=== PATIENT | female | born 1955 | race Caucasian/White ===

== ENCOUNTER 2019-05-24 17:58 | Emergency (ER) | payer OTHER ==
[2019-05-24 18:14] VITALS: BP 128/95
[2019-05-24] MEDS ORDERED: HYDROcodone/ACETAMIN 5-325 MG* 1 TAB PO ONE (18:21)
--- NOTE | 2019-05-24 18:31 | UC ---
Hip/Pelvis Pain - HPI Summary HPI Summary: 64-year-old woman comes in with a chief complaint of right hip and pelvis pain in the right lower leg pain after suffering a fall at home this morning at approximately 4 AM when she accidentally tripped over a piece of equipment. Been having pain all day. The worst pain is in the right hip. Pain with any kind of movement or weightbearing. She did try nonsteroidal anti-inflammatory and Relafen with minimal relief. Does feel some tingling down the right leg and some numbness. - History Of Current Complaint Chief Complaint: UCLowerExtremity Stated Complaint: HIP INJURY Time Seen by Provider: 05/24/19 18:10 Pain Intensity: 8 - Allergies/Home Medications Allergies/Adverse Reactions: Allergies Allergy/AdvReac Type Severity Reaction Status Date / Time No Known Allergies Allergy Verified 05/24/19 18:14 Home Medications: Home Medications Cholecalciferol CAP/TAB(NF) [Vitamin D3 CAP/TAB (NF)] 05/24/19 [History] Hydrochlorothiazide TAB* [Hydrodiuril TAB*] 05/24/19 [History] Lisinopril TAB* [Prinivil TAB*] 5 mg PO DAILY 05/24/19 [History Confirmed ] Nabumetone TAB* [Relafen TAB*] 1,000 mg PO PRN 05/24/19 [History] PMH/Surg Hx/FS Hx/Imm Hx Previously Healthy: Yes - osteoporosis - Surgical History Surgical History: Yes Surgery Procedure, Year, and Place: hemorrhoid surgery 03/2019 - Family History Known Family History: Positive: Unknown - Social History Alcohol Use: None Substance Use Type: None Smoking Status (MU): Never Smoked Tobacco Review of Systems All Other Systems Reviewed And Are Negative: Yes Constitutional: Positive: Negative Skin: Positive: Negative Eyes: Positive: Negative ENT: Positive: Negative Respiratory: Positive: Negative Cardiovascular: Positive: Negative Gastrointestinal: Positive: Negative Motor: Positive: Other - SEE HPI Neurovascular: Positive: Other - SEE HPI Musculoskeletal: Positive: Other: - SEE HPI Neurological/Mental Status: Positive: Other - SEE HPI Psychological: Positive: Negative Is Patient Immunocompromised?: No Physical Exam Triage Information Reviewed: Yes Appearance: Well-Appearing, Well-Nourished, Pain Distress - Mild at rest moderate with examination or movement. Vital Signs: Initial Vital Signs Temp 99.6 F 05/24/19 18:09 Pulse 116 05/24/19 18:09 Resp 20 05/24/19 18:09 BP 128/95 05/24/19 18:09 Pulse Ox 97 05/24/19 18:09 Vital Signs Reviewed: Yes Eye Exam: Normal Eyes: Positive: Conjunctiva Clear Neck: Positive: Supple Respiratory: Positive: No respiratory distress Musculoskeletal: Positive: Other: - Tender to palpation over the right greater trochanter right iliac crest and right ischial ramus. Also some tenderness to palpation the lateral right lower leg. Pain with any attempted range of motion of hip. Neurological: Positive: Alert Psychological: Positive: Age Appropriate Behavior Skin Exam: Normal Hip Injury Course/Dx - Course Course Of Treatment: I discussed the x-rays with the patient and her . I discussed the x- rays with the orthopedist on-call Dr. Drew. He recommends a CT scan of the hip and admission to the hospital for further care of right hip fracture. CT scan was done here in clinic and then patient went to the hospital by POV. - Differential Dx/Diagnosis Provider Diagnosis: Closed right hip fracture, Right leg pain Discharge ED - Sign-Out/Discharge Documenting (check all that apply): Patient Departure All imaging exams completed and their final reports reviewed: No - Discharge Plan Condition: Stable Disposition: HOME-RECOMMEND TO ED Patient Education Materials: Hip Fracture (ED) Referrals: Gonzalo Devries MD [Medical Doctor] - Additional Instructions: GO DIRECTLY TO THE EMERGENCY DEPARTMENT FOR FURTHER EVALUATION AND CARE OF YOUR RIGHT HIP FRACTURE. DR DEVRIES IS THE ORTHOPEDIST SEMICONDUCTOR ASSEMBLER WHO I DISCUSSED YOUR CASE WITH. - Billing Disposition and Condition Condition: STABLE Disposition: Home-Recommend to ED
--- NOTE | 2019-05-25 14:43 | UC ---
- Progress Note Progress Note: RADIOLOGY REPORTS REVIEWED. CONFIRMED IMPACTED RIGHT FEMORAL NECK FRACTURE. PATIENT WAS SENT TO THE ER. Course/Dx - Diagnoses Provider Diagnoses: Closed right hip fracture, Right leg pain Discharge ED - Sign-Out/Discharge Documenting (check all that apply): Post-Discharge Follow Up All imaging exams completed and their final reports reviewed: Yes - Discharge Plan Condition: Stable Disposition: HOME-RECOMMEND TO ED Patient Education Materials: Hip Fracture (ED) Referrals: Gonzalo Devries MD [Medical Doctor] - Additional Instructions: GO DIRECTLY TO THE EMERGENCY DEPARTMENT FOR FURTHER EVALUATION AND CARE OF YOUR RIGHT HIP FRACTURE. DR DEVRIES IS THE ORTHOPEDIST [employer] WHO I DISCUSSED YOUR CASE WITH. - Billing Disposition and Condition Condition: STABLE Disposition: Home-Recommend to ED
== END 2019-05-24 19:15 | disposition home health service (06) ==
LOC: UCEAST 17:58
DX: S72.001A Fracture of unspecified part of neck of right femur, initial encounter for closed fracture (principal); M81.0 Age-related osteoporosis without current pathological fracture; M79.604 Pain in right leg; W01.0XXA Fall on same level from slipping, tripping and stumbling without subsequent striking against object, initial encounter; Y92.9 Unspecified place or not applicable
CPT/HCPCS: 72192; 99202; G0463

== ENCOUNTER 2019-05-24 19:46 | Inpatient (IN) | payer OTHER ==
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
[2019-05-24 21:17] LABS: ABS Eosinophils 0.1 10^3/ul (0-0.6); ABS Lymphocytes 1.4 10^3/ul (1.0-4.8); ABS Monocytes 0.6 10^3/ul (0-0.8); ABS Neutrophils 6.4 10^3/ul (1.5-7.7); Eosinophil % 1.3 %; Hematocrit 37 % (35-47); Hemoglobin 12.6 g/dL (12.0-16.0); Lymphocyte % 16.6 %; Mean Corpuscular HGB Conc 34 g/dL (31-36); Mean Corpuscular Hemoglobin 30 pg (27-31); Mean Corpuscular Volume 89 fL (80-97); Mean Platelet Volume 7.5 fL (7.4-10.4); Platelet Count 263 10^3/uL (150-450); Red Blood Count 4.16 10^6 /uL (3.70-4.87); Red Cell Distribution Width 14 % (10-15); White Blood Count 8.6 10^3/uL (3.5-10.8)
[2019-05-24 21:29] LABS: Activated Partial Thrombo Time 34.5 seconds (26.0-38.0); INR 1.09 (0.82-1.09)
[2019-05-24 21:37] LABS: Albumin 4.1 g/dL (3.2-5.2); Albumin/Globulin Ratio 1.4 (1-3); BUN/Creatinine Ratio 24.7 (8-20); Calcium 9.4 mg/dL (8.6-10.3); EGFR African American 91.6 (>60); EGFR Non-African American 75.7 (>60); Globulin 2.9 g/dL (2-4); Potassium 4.1 mmol/L (3.5-5.0); Total Bilirubin 0.7 mg/dL (0.2-1.0)
[2019-05-24] MEDS ORDERED: Ondansetron INJ* 2 MG/ML VIAL IV PRN (22:49)
[2019-05-24] MEDS ORDERED: Morphine INJ* 2 MG/ML 1 ML SYRINGE (TWO MG - NEW SYRINGE VERSION) IV PRN (22:49)
[2019-05-24 23:10] LABS: Urine Appearance Clear; Urine Bilirubin Negative (Negative); Urine Blood 1+ (Negative); Urine Color Yellow; Urine Glucose Negative (Negative); Urine Ketones Negative (Negative); Urine Nitrite Negative (Negative); Urine Protein Negative (Negative); Urine Specific Gravity 1.016 (1.010-1.030); Urine Urobilinogen Negative (Negative)
[2019-05-24 23:14] LABS: Urine Bacteria Absent (Absent); Urine Red Blood Cell 1+(3-5/hpf) (Absent); Urine Squamous Epithelial Cell Present (Absent); Urine White Blood Cell 1+(6-10/hpf) (Absent)
[2019-05-24] MEDS: oxyCODONE/Acetamin 5/325 MG* TAB PO PRN (23:44)
[2019-05-25] MEDS: NS 0.9% 1000 ML** 1,000 ML IV SCH ×2 (01:17→12:45)
--- NOTE | 2019-05-25 01:27 | HP ---
History of Present Illness - History of Present Illness Reason for Visit: Fall, Right femoral neck fracture History of Present Illness: 64 yo female with PMHx significant for HTN presented to the ED after fall today. Patient stated she tripped over a metal toolbox and landed on her right hip. She did not hit her head and did not loose consciousness. She was able to ambulate but had significant pain on movement on the right LE. She subsequently went to an urgent care facility and X-ray showed no fracture but CT pelvis revealed right proximal neck fracture. Dr. Gonzalo Nichole the Orthopedic surgeon was consulted and recommended admission and he will evaluate with possible ORIF. Patient denied chest pain, fever, nausea, vomiting, saddle anesthesia, tingling or numbness. - Past Medical History Cardiac: HTN - Past Surgical History Past Surgical History: Hysterectomy, Other - Hemorrhoidectomy, Back surgery - Past Social History Smoke: No Alcohol: Rare Drugs: None Lives: With Family Review of Systems - Measurements Intake and Output: Intake and Output Last 24 Hours 05/22/19 05/23/19 05/24/19 05/25/19 06:59 06:59 06:59 06:59 Weight 58.967 kg - Review of Systems Constitutional Symptoms: Negative: Weakness, Fatigue Dermatology: Positive: Normal HEENT: Positive: Normal Eyes: Positive: Normal Thyroid: Positive: Normal Pulmonary: Positive: Normal Cardiology: Positive: Normal Gastroenterology: Positive: Normal Genital - Urinary: Positive: Normal Genitourinay - Female: Positive: Menopause Musculoskeletal: Positive: Joint Pain, Other - s/p Right femoral neck fracture secondary to fall Endocrinology: Positive: Normal Hematologic/Lymphatic: Negative: Hx Leukemia, Hx Lymphoma Neurology: Negative: Headache, Migraines, Diplopia, Dizziness, Change in Speech, Hx of Seizures Psychiatry: Positive: Normal Allergic/Immunologic: Negative: Asthma Objective Active Medications: Acetaminophen (Tylenol Tab*) 650 mg PO Q4H PRN PRN Reason: PAIN - MILD Cholecalciferol (Vitamin D Tab*) 1,000 units PO DAILY [facility] Docusate Sodium (Colace Cap*) 100 mg PO BID [facility] Hydrochlorothiazide (Hydrodiuril Tab*) 25 mg PO DAILY [facility] Sodium Chloride (Ns 0.9% 1000 Ml) 1,000 mls @ 100 mls/hr IV PER RATE [facility] Last Admin: 05/25/19 01:17 Dose: 100 mls/hr Lisinopril (Prinivil Tab*) 5 mg PO DAILY [facility] Morphine Sulfate (Morphine Inj (Syringe))*) 2 mg IV Q4H PRN PRN Reason: PAIN - SEVERE Ondansetron HCl (Zofran Inj*) 4 mg IV Q4H PRN PRN Reason: NAUSEA/VOMITING Oxycodone/Acetaminophen (Percocet 5/325 Tab*) 1 tab PO Q4H PRN PRN Reason: PAIN - MODERATE Last Admin: 05/24/19 23:44 Dose: 1 tab Vital Signs - 8 hr 05/24/19 05/24/19 05/24/19 19:51 20:09 20:39 Temperature 99.7 F Pulse Rate 96 95 Respiratory 20 Rate Blood Pressure 128/90 112/91 141/85 (mmHg) O2 Sat by Pulse 95 92 Oximetry 05/24/19 05/24/19 05/24/19 21:10 21:39 22:09 Temperature Pulse Rate Respiratory Rate Blood Pressure 109/82 121/85 121/82 (mmHg) O2 Sat by Pulse Oximetry 05/24/19 05/24/19 05/24/19 22:40 23:44 23:47 Temperature Pulse Rate 97 Respiratory 16 Rate Blood Pressure 145/111 105/75 (mmHg) O2 Sat by Pulse 94 Oximetry 05/24/19 05/25/19 05/25/19 23:49 00:00 00:05 Temperature 98.6 F Pulse Rate 99 92 92 Respiratory 16 Rate Blood Pressure 110/75 (mmHg) O2 Sat by Pulse 93 93 94 Oximetry 05/25/19 05/25/19 05/25/19 00:09 00:11 00:30 Temperature 98.6 F Pulse Rate 91 91 92 Respiratory 16 Rate Blood Pressure 110/75 110/75 (mmHg) O2 Sat by Pulse 95 94 94 Oximetry 05/25/19 05/25/19 00:41 00:56 Temperature 97.7 F Pulse Rate 97 Respiratory 18 16 Rate Blood Pressure 124/66 (mmHg) O2 Sat by Pulse 96 Oximetry Oxygen Devices in Use Now: None Appearance: Awake, alert and in mild distress(pain) Eyes: No Scleral Icterus Ears/Nose/Mouth/Throat: NL Teeth, Lips, Gums, Clear Oropharnyx, Mucous Membranes Moist Neck: NL Appearance and Movements; NL JVP, Trachea Midline, No Thyroid Enlargement, Masses Respiratory: Symmetrical Chest Expansion and Respiratory Effort, Clear to Auscultation Cardiovascular: NL Sounds; No Murmurs; No JVD, RRR, No Edema Abdominal: NL Sounds; No Tenderness; No Distention, No Hepatosplenomegaly Lymphatic: No Cervical Adenopathy Extremities: No Edema, No Clubbing, Cyanosis, - - decreased ROM RLE, hip tenderness on movement. Skin: No Rash or Ulcers Neurological: Alert and Oriented x 3, NL Sensation Result Diagrams: 05/24/19 21:06 05/24/19 21:06 Diagnostic Imaging: Surgical History Surgical History Yes Surgery Procedure, Year, and hemorrhoid surgery 03/2019 Place disc hernia surgery 1993 Diagnostics Summary of EKG Findings [2024] EKG showed NSR with rate of 88 BPM, no ST elevations. ED physician has reviewed and interpreted this EKG. Assess/Plan/Problems-Billing Assessment: 64 yo Female with PMHx significant for HTN presented to the ED with CC of Fall and a fractured Right femoral neck: - Patient Problems (1) Hip fracture, right Current Visit: Yes Status: Acute Code(s): S72.001A - FRACTURE OF UNSP PART OF NECK OF RIGHT FEMUR, INIT SNOMED Code(s): 952278728 Comment: Admit to medicine on SSU Pain control Orthopedics consult for possible ORIF. NPO after midnight Patient may take her antihypertensives with little sip of water prior to procedure Patient is optimized for procedure. Patient is minimal risk for surgery. Will hold DVT ppx for now and resume 48 hours after procedure if stable. (2) Fall Current Visit: Yes Status: Acute Comment: Fall precaution. PT Eval (3) HTN (hypertension), benign Current Visit: Yes Status: Acute Code(s): I10 - ESSENTIAL (PRIMARY) HYPERTENSION SNOMED Code(s): 60072428 Comment: c/w Home meds Lisinopril, HCTZ with holding parameters. (4) DVT prophylaxis Current Visit: Yes Status: Acute Code(s): Z29.9 - ENCOUNTER FOR PROPHYLACTIC MEASURES, UNSPECIFIED SNOMED Code(s): 484980689 Comment: Will hold for now. Will reevaluate after procedure. (5) Full code status Current Visit: Yes Status: Acute Code(s): Z78.9 - OTHER SPECIFIED HEALTH STATUS SNOMED Code(s): 372828355 Status and Disposition: Admit to Medicine with Orthopedics consult for possible ORIF.
[2019-05-25 08:10] LABS: ABS Eosinophils 0.2 10^3/ul (0-0.6); ABS Lymphocytes 1.4 10^3/ul (1.0-4.8); ABS Monocytes 0.5 10^3/ul (0-0.8); ABS Neutrophils 5.8 10^3/ul (1.5-7.7); Eosinophil % 2.3 %; Hematocrit 38 % (35-47); Hemoglobin 12.8 g/dL (12.0-16.0); Lymphocyte % 17.8 %; Mean Corpuscular HGB Conc 34 g/dL (31-36); Mean Corpuscular Hemoglobin 31 pg (27-31); Mean Corpuscular Volume 90 fL (80-97); Mean Platelet Volume 7.7 fL (7.4-10.4); Nucleated Red Blood Cells % 0.1; Platelet Count 239 10^3/uL (150-450); Red Blood Count 4.18 10^6 /uL (3.70-4.87); Red Cell Distribution Width 14 % (10-15); White Blood Count 7.8 10^3/uL (3.5-10.8)
[2019-05-25 08:29] LABS: BUN/Creatinine Ratio 23.3 (8-20); Calcium 9.4 mg/dL (8.6-10.3); EGFR African American 97.4 (>60); EGFR Non-African American 80.5 (>60); Potassium 4.4 mmol/L (3.5-5.0)
[2019-05-25] MEDS: oxyCODONE/Acetamin 5/325 MG* TAB PO PRN ×2 (08:41→14:07)
[2019-05-25] MEDS: Docusate CAP* 100 MG PO SCH ×2 (08:42→21:57)
[2019-05-25] MEDS: Cholecalciferol TAB* 1000 UNITS PO SCH (08:42)
--- NOTE | 2019-05-25 08:51 | PN ---
Subjective Date of Service: 05/25/19 Interval History: Pt laying in bed, in NAD. Denies any CP, SOB, abdominal discomfort, numbness/ tingling. Denies any concerns at this time. Awaiting OR later today. Objective Active Medications: Acetaminophen (Tylenol Tab*) 650 mg PO Q4H PRN PRN Reason: PAIN - MILD Cholecalciferol (Vitamin D Tab*) 1,000 units PO DAILY [facility] Last Admin: 05/25/19 08:42 Dose: 1,000 units Docusate Sodium (Colace Cap*) 100 mg PO BID [facility] Last Admin: 05/25/19 08:42 Dose: 100 mg Hydrochlorothiazide (Hydrodiuril Tab*) 25 mg PO DAILY [facility] Last Admin: 05/25/19 08:42 Dose: Not Given Sodium Chloride (Ns 0.9% 1000 Ml) 1,000 mls @ 100 mls/hr IV PER RATE [facility] Last Admin: 05/25/19 01:17 Dose: 100 mls/hr Lisinopril (Prinivil Tab*) 5 mg PO DAILY [facility] Last Admin: 05/25/19 08:41 Dose: Not Given Morphine Sulfate (Morphine Inj (Syringe))*) 2 mg IV Q4H PRN PRN Reason: PAIN - SEVERE Ondansetron HCl (Zofran Inj*) 4 mg IV Q4H PRN PRN Reason: NAUSEA/VOMITING Oxycodone/Acetaminophen (Percocet 5/325 Tab*) 1 tab PO Q4H PRN PRN Reason: PAIN - MODERATE Last Admin: 05/25/19 08:41 Dose: 1 tab Vital Signs - 8 hr 05/25/19 05/25/19 05/25/19 00:56 03:13 07:59 Temperature 98.0 F 98.0 F Pulse Rate 83 89 Respiratory 16 17 16 Rate Blood Pressure 113/73 118/76 (mmHg) O2 Sat by Pulse 95 99 Oximetry 05/25/19 08:41 Temperature Pulse Rate Respiratory 16 Rate Blood Pressure (mmHg) O2 Sat by Pulse Oximetry Oxygen Devices in Use Now: None Appearance: Laying in bed, NAD Eyes: No Scleral Icterus, PERRLA Ears/Nose/Mouth/Throat: Clear Oropharnyx Respiratory: Symmetrical Chest Expansion and Respiratory Effort, Clear to Auscultation Cardiovascular: RRR Abdominal: NL Sounds; No Tenderness; No Distention Extremities: No Edema Skin: - - Mild bruising to lateral/posterior R thigh, full aspect posterior thigh not visualized Neurological: Alert and Oriented x 3 Result Diagrams: 05/25/19 07:46 05/25/19 07:46 Diagnostic Imaging: Surgical History Surgical History Yes Surgery Procedure, Year, and hemorrhoid surgery 03/2019 Place disc hernia surgery 1993 Diagnostics Summary of EKG Findings [2024] EKG showed NSR with rate of 88 BPM, no ST elevations. ED physician has reviewed and interpreted this EKG. Assess/Plan/Problems-Billing Assessment: 64 yo Female with PMHx significant for HTN presented to the ED with CC of Fall and a fractured Right femoral neck. Awaiting OR today. - Patient Problems (1) Hip fracture, right Current Visit: Yes Status: Acute Code(s): S72.001A - FRACTURE OF UNSP PART OF NECK OF RIGHT FEMUR, INIT SNOMED Code(s): 925849748 Comment: Admit to medicine on SSU Pain control Orthopedics consult - awaiting OR today NPO Holding ACEI, HCTZ RCRI score 0 giving her a class 1 risk of cardiac event, no other significant contributing factors that would increase risk of procedure, at this time no further cardiac evaluation is needed, pt is an acceptable candidate to proceed with surgery SCDs for DVT prophylaxis (2) HTN (hypertension), benign Current Visit: Yes Status: Acute Code(s): I10 - ESSENTIAL (PRIMARY) HYPERTENSION SNOMED Code(s): 19871158 Comment: Stable, continue to hold ACEI and HCTZ prior to surgery (3) Full code status Current Visit: Yes Status: Acute Code(s): Z78.9 - OTHER SPECIFIED HEALTH STATUS SNOMED Code(s): 177472989 (4) DVT prophylaxis Current Visit: Yes Status: Acute Code(s): Z29.9 - ENCOUNTER FOR PROPHYLACTIC MEASURES, UNSPECIFIED SNOMED Code(s): 129114835 Comment: SCDs Status and Disposition: Status: Guarded Disposition: Pre-op, admitted to surgical stay unit Attending: Domi Leigh
[2019-05-25] MEDS ORDERED: Lisinopril TAB* 5 MG PO SCH (09:00)
[2019-05-25] MEDS ORDERED: Hydrochlorothiazide TAB* 25 MG PO SCH (09:00)
--- NOTE | 2019-05-25 12:14 | CONS ---
CONSULTATION REPORT: DATE OF CONSULT: 05/25/19 ATTENDING ORTHOPEDIC PROVIDER: Dr. Gonzalo Nichole. CHIEF COMPLAINT: Right femoral neck fracture. HISTORY OF PRESENT ILLNESS: The patient is a 64-year-old female. Her past medical history is significant for hypertension, who presented to the emergency room on 05/24/19 with a fall at 4 a.m. on 05/24/19. She landed directly on her right hip. She has limited ability to bear weight. She was limping around her house with the help of her until coming in overnight late on 05/24/19. She reports that she did not have any other injuries when she fell. Fall occurred when she walked into the kitchen in the middle of night. She fell over a metal tool box, which was in her path. She did not hit her head. She did not lose consciousness. There was no associated shortness of breath, dizziness, or chest pain. She did go to the urgent care where she had initial xrays yesterday prior to coming to the emergency room. Today, she reports that she is quite comfortable in bed. She has pain that is sharp and severe in nature with any movement of the right lower extremity. There is no radiation of pain. She has no history of heart attack, stroke, blood clot. PAST MEDICAL HISTORY: Significant for hypertension. PAST SURGICAL HISTORY: Hysterectomy, hemorrhoidectomy and back surgery without any complications from the anesthesia. FAMILY HISTORY: No family history of adverse reactions from anesthesia. SOCIAL HISTORY: The patient lives at home with her . She is a certified massage therapist. She regularly attends spinning classes. She walks without any assistive device. She does not drink alcohol, smoke or use any drugs. ALLERGIES: No known drug allergies. REVIEW OF SYSTEMS: General: No fever or chills. HEENT: No head trauma, no headache. No change in vision. Cardiac: No chest pain. No history of heart attack. Respiratory: No shortness of breath. No cough. GI: No abdominal pain, nausea, vomiting or diarrhea. : No dysuria. Musculoskeletal: Positive only for right hip pain. No pain in her extremities otherwise. Neuro : No report of decreased sensation of upper and lower extremities. Hematology : No history of blood clot. PHYSICAL EXAM: Temperature 98.0, pulse rate 89, respiratory rate 16, oxygen saturation 99% on room air, blood pressure 118/76. General: Appears well in no acute distress. HEENT: Normocephalic, atraumatic. Extraocular movements are intact. Cardiac: S1, S2. Regular rate and rhythm. Lungs: Clear to auscultation bilaterally. Abdomen: Bowel sounds normoactive, soft, nontender, nondistended. No guarding noted. Musculoskeletal: Bilateral upper extremities and left lower extremity with skin envelope intact. Nontender to palpation. Moves all joints well. Left lower extremity: Negative log roll. Right lower extremity: Skin envelope intact. She has tenderness and palpation over the lateral hip. She is also mildly tender to palpation over the proximal fibula. She is able flex and extend the toes, ankle, and knee without any pain. Did not move hip due to pain. Neuro: Sensation intact to light touch bilateral upper and lower extremities. Vascular: DP 2+ bilateral lower extremities. Capillary refill less than 2 seconds distally bilateral lower extremities. DIAGNOSTIC STUDIES/LAB DATA: White blood cell count 7.85, hemoglobin 12.8, hematocrit 38, and platelet count 239. INR 1.09. Sodium 139, potassium 4.4, creatinine 0.73. Type and screen has been ordered prior to surgery today. ASSESSMENT: The patient has a valgus impacted right femoral neck fracture. PLAN: The patient will be on bed rest. She will be nonweightbearing. Hold chemical DVT prophylaxis. She has been medically optimized. The patient was offered operative and nonoperative treatments. She is aware and in agreement to undergo an ORIF of the right hip with cannulated screws by Dr. Gonzalo Nichole today. LEMUEL STEVE [id number]/[facility] #: [id number] MTDD
--- NOTE | 2019-05-25 14:46 | PN ---
Progress Note - Progress Note Date of Service: 05/25/19 Note: I saw and examined Yudy. She had a fall and inability to weight bear in the RLE afterwards. She ended up coming in urgent care last night and was found to have a right femoral neck fracture. She was admitted to the hospitalist service and has been cleared for surgery. She has pain with logroll and heel strike. She is neurovascularly intact. I reviewed her x-rays and CT scan. She does have a minimally displaced basicervical femoral neck fracture. I did discuss the diagnosis with her and aziza pictures to explain. We did discuss treatment options, both nonoperative and operative. We did discuss percutaneous screws to stabilize the fracture and expedite her mobilization and weightbearing. She would like to move forward with surgery. We did discuss risks of surgery at length, including nonunion, malunion and displacement. Gonzalo Nichole MD
[2019-05-25] MEDS ORDERED: Dexamethasone IV* 4 MG/ML 1 ML (4 MG) ONE (15:25)
[2019-05-25] MEDS ORDERED: Glycopyrrolate IV* 0.2 MG/ML 1 ML VIAL ONE (15:25)
[2019-05-25] MEDS ORDERED: fentaNYL* 50 MCG/ML 2 ML VIAL (100 MCG VIAL) ONE ×2 (15:25→18:19)
[2019-05-25] MEDS ORDERED: Midazolam* 1 MG/ML 2 ML VIAL (2 MG) ONE (15:25)
[2019-05-25] MEDS ORDERED: Propofol* 10 MG/ML 20 ML BTL ONE (15:25)
[2019-05-25] MEDS ORDERED: Ondansetron INJ* 2 MG/ML VIAL ONE (15:25)
[2019-05-25] MEDS ORDERED: ceFAZolin 2 GM PREMIX in ORs 2 GM/50 ML BAG ONE (16:13)
[2019-05-25] MEDS ORDERED: Naloxone* 0.4 MG/ML 1 ML VIAL IV PRN (17:52)
[2019-05-25] MEDS ORDERED: Sugammadex * 200 MG/2 ML VIAL IV PUSH ONE (17:54)
--- NOTE | 2019-05-25 18:14 | OP ---
Operative Report - Blank - Operative Report Date of Operation: 05/25/19 Note: PATIENT: Yudy Garcia DATE OF : 1955 DATE OF SURGERY: 05/25/2019 SURGEON: Gonzalo Nichole MD CLIENT ONBOARDING ANALYST: None ANESTHESIOLOGIST: Dr. Cutler PREOPERATIVE DIAGNOSIS: Right basicervical femoral neck hip fracture. POSTOPERATIVE DIAGNOSIS: Right basicervical femoral neck hip fracture. PROCEDURE: Right hip fracture surgical fixation with cannulated screws. ANESTHESIA: GETA IMPLANTS: Three Synthes 7.3mm cannulated screws ESTIMATED BLOOD LOSS: 25cc SPECIMENS: None. DRAIN: None TOURNIQUET TIME: None. COMPLICATIONS: None. STATUS: Stable from the operating room to the recovery room and then readmitted to the floor. INDICATIONS FOR PROCEDURE: Yudy sustained a fall with the above-mentioned injury. Both operative and non operative treatment alternatives were reviewed. Further, the nature and risks of surgery were reviewed in careful detail. Our discussions regarding the risks of surgery included, but were not limited to, bleeding, need for blood transfusion, infection, wound problems, malunion, nonunion, AVN, nerve injury, neuroma, RSD, persistent symptoms, need for further surgery and even the remote chance of catastrophic complication. DESCRIPTION OF PROCEDURE: The patient was seen in the preoperative holding unit and informed written consent was obtained. The appropriate extremity was marked. The patient was then brought to the operating room anesthesia was induced. The patient was then carefully positioned on the fracture table and all bony prominences were padded with great care. We fluoroscopically assessed the fracture. A chlorhexidine-based pre-scrub was performed followed by prep and drape in standard sterile fashion with ChloraPrep. A surgical safety pause was then conducted in which we confirmed the appropriate patient, extremity, planned procedure, availability of equipment, indication and administration of prophylactic antibiotics, and DVT prophylaxis in the form of a compression boot on the non-surgical extremity. I utilized fluoroscopy to agustín out my lateral hip incision. An approximately 3 cm longitudinal incision was made. I incised through the iliotibial band to get down to the lateral femur. I used fluoroscopy to drive a guidewire up the inferior aspect of the femoral neck. Placement of the guidewire was confirmed on both AP and lateral views. I then utilized a parallel aiming guide to place 2 more guidewires superiorly up the femoral neck, anteriorly and posteriorly. The length and placement of the wires were confirmed on both AP and lateral fluoroscopic views. The length of the wires were measured with a depth gauge. The outer cortex of the femur was then over-drilled for the 3 wires. Three Synthes 7.3 mm partially threaded cannulated screws were then placed over the guidewires into the proximal femur/hip. Final placement of the screws was then confirmed on AP and lateral fluoroscopic images. I irrigated copiously and closed in layers utilizing #1 Vicryl for the iliotibial band, 2-0 Vicryl for the Blair's and dermal layers, and rebekah for the skin. A sterile dressing was then applied. At this point, the patient was carefully transitioned off of the fracture table and awakened from anesthesia. There were no complications. All needle and sponge counts were correct at the end of the case. ATTESTATION: I attest I was present and scrubbed and performed the entire procedure myself. POSTOPERATIVE PLAN: The patient will be admitted back to the medical service postoperatively and may be 50% partial weightbearing and will work with physical therapy. Chemical DVT prophylaxis is recommended for 1 month postoperatively.
[2019-05-25] MEDS: fentaNYL* 50 MCG/ML 2 ML VIAL (100 MCG VIAL) IV PRN ×4 (18:20→18:49)
[2019-05-25] MEDS ORDERED: oxyCODONE/Acetamin 5/325 MG* TAB ONE (18:55)
[2019-05-25] MEDS ORDERED: Acetaminophen TAB* 325 MG PO PRN (21:00)
[2019-05-25] MEDS ORDERED: ceFAZolin 1 GM* X 3 DOSES POST-OP Q8H (AddVan) IVPB SCH ×2 (21:00)
[2019-05-26] MEDS: ceFAZolin 1 GM* X 3 DOSES POST-OP Q8H (AddVan) IVPB SCH ×6 (00:29→15:50)
[2019-05-26] MEDS: oxyCODONE TAB* 5 MG TAB PO PRN ×4 (01:04→20:18)
[2019-05-26] MEDS: NS 0.9% 1000 ML** 1,000 ML IV SCH (05:24)
[2019-05-26 06:01] LABS: ABS Lymphocytes 0.8 10^3/ul (1.0-4.8); ABS Monocytes 0.7 10^3/ul (0-0.8); ABS Neutrophils 8.9 10^3/ul (1.5-7.7); Eosinophil % 0.1 %; Hematocrit 33 % (35-47); Hemoglobin 11.4 g/dL (12.0-16.0); Lymphocyte % 7.3 %; Mean Corpuscular HGB Conc 35 g/dL (31-36); Mean Corpuscular Hemoglobin 31 pg (27-31); Mean Corpuscular Volume 89 fL (80-97); Platelet Count 211 10^3/uL (150-450); Red Blood Count 3.72 10^6 /uL (3.70-4.87); Red Cell Distribution Width 13 % (10-15); White Blood Count 10.3 10^3/uL (3.5-10.8)
[2019-05-26 06:15] LABS: BUN/Creatinine Ratio 15.6 (8-20); EGFR African American 113.4 (>60); EGFR Non-African American 93.7 (>60); Potassium 4.3 mmol/L (3.5-5.0)
[2019-05-26] MEDS: Docusate CAP* 100 MG PO SCH ×2 (08:33→20:18)
[2019-05-26] MEDS: Cholecalciferol TAB* 1000 UNITS PO SCH (08:33)
--- NOTE | 2019-05-26 09:04 | PN ---
Progress Note - Progress Note Date of Service: 05/26/19 SOAP: Subjective: []Patient seen and examined at bedside. She feels well, denies CP, SOB, dizziness, nausea. Desires DC home tomorrow. Worked with PT, has done stairs already. Objective: []Gen: NAD, appears comfortable RLE: dressing CDI, thigh soft, df/pf intact, dp2+, sensation intact to light touch distally Calves supple and nontender Assessment: [] POSTOPERATIVE DIAGNOSIS: Right basicervical femoral neck hip fracture. PROCEDURE: Right hip fracture surgical fixation with cannulated screws. Plan: []50% wb RLE lovenox 40 mg sq qd plan for DC tomorrow to home Vital Signs Temp 97.9 F 05/26/19 07:44 Pulse 82 05/26/19 07:44 Resp 18 05/26/19 08:14 BP 115/74 05/26/19 07:44 Pulse Ox 94 05/26/19 07:44 Intake & Output 05/25/19 05/26/19 05/26/19 18:59 06:59 18:59 Intake Total 1748 2307 Output Total 350 1800 Balance 1398 507 Intake: IV Fluids 1748 1207 ABX - CEFAZOLIN 55 LR 700 300 NS (0.9%) 1048 852 Oral 0 1100 Output: Urine 350 1800 Other: Estimated Blood Loss 100 Comment Laboratory Last Values WBC 10.3 10^3/uL (3.5-10.8) 05/26/19 05:29 RBC 3.72 10^6 /uL (3.70-4.87) 05/26/19 05:29 Hgb 11.4 g/dL (12.0-16.0) L 05/26/19 05:29 Hct 33 % (35-47) L 05/26/19 05:29 MCV 89 fL (80-97) 05/26/19 05:29 MCH 31 pg (27-31) 05/26/19 05:29 MCHC 35 g/dL (31-36) 05/26/19 05:29 RDW 13 % (10-15) 05/26/19 05:29 Plt Count 211 10^3/uL (150-450) 05/26/19 05:29 MPV 8.0 fL (7.4-10.4) 05/26/19 05:29 Neut % (Auto) 86.0 % 05/26/19 05:29 Lymph % (Auto) 7.3 % 05/26/19 05:29 [place] % (Auto) 6.4 % 05/26/19 05:29 Eos % (Auto) 0.1 % 05/26/19 05:29 Baso % (Auto) 0.2 % 05/26/19 05:29 Absolute Neuts (auto) 8.9 10^3/ul (1.5-7.7) H 05/26/19 05:29 Absolute Lymphs (auto) 0.8 10^3/ul (1.0-4.8) L 05/26/19 05:29 Absolute Monos (auto) 0.7 10^3/ul (0-0.8) 05/26/19 05:29 Absolute Eos (auto) 0.0 10^3/ul (0-0.6) 05/26/19 05:29 Absolute Basos (auto) 0.0 10^3/ul (0-0.2) 05/26/19 05:29 Absolute Nucleated RBC 0.0 10^3/ul 05/26/19 05:29 Nucleated RBC % 0.0 05/26/19 05:29 INR (Anticoag Therapy) 1.09 (0.82-1.09) 05/24/19 21:06 APTT 34.5 seconds (26.0-38.0) 05/24/19 21:06 Sodium 137 mmol/L (135-145) 05/26/19 05:29 Potassium 4.3 mmol/L (3.5-5.0) 05/26/19 05:29 Chloride 106 mmol/L (101-111) 05/26/19 05:29 Carbon Dioxide 24 mmol/L (22-32) 05/26/19 05:29 Anion Gap 7 mmol/L (2-11) 05/26/19 05:29 BUN 10 mg/dL (6-24) 05/26/19 05:29 Creatinine 0.64 mg/dL (0.51-0.95) 05/26/19 05:29 Est GFR ( Amer) 113.4 (>60) 05/26/19 05:29 Est GFR (Non-Af Amer) 93.7 (>60) 05/26/19 05:29 BUN/Creatinine Ratio 15.6 (8-20) 05/26/19 05:29 Glucose 128 mg/dL (70-100) H 05/26/19 05:29 Lactic Acid 0.8 mmol/L (0.5-2.0) 05/24/19 21:06 Calcium 9.0 mg/dL (8.6-10.3) 05/26/19 05:29 Total Bilirubin 0.70 mg/dL (0.2-1.0) 05/24/19 21:06 AST 13 U/L (13-39) 05/24/19 21:06 ALT 15 U/L (7-52) 05/24/19 21:06 Alkaline Phosphatase 52 U/L (34-104) 05/24/19 21:06 Troponin I 0.00 ng/mL (<0.03) 05/24/19 21:06 Total Protein 7.0 g/dL (6.4-8.9) 05/24/19 21:06 Albumin 4.1 g/dL (3.2-5.2) 05/24/19 21:06 Globulin 2.9 g/dL (2-4) 05/24/19 21:06 Albumin/Globulin Ratio 1.4 (1-3) 05/24/19 21:06 Urine Color Yellow 05/24/19 20:10 Urine Appearance Clear 05/24/19 20:10 Urine pH 5.0 (5-9) 05/24/19 20:10 Ur Specific [place] 1.016 (1.010-1.030) 05/24/19 20:10 Urine Protein Negative (Negative) 05/24/19 20:10 Urine Ketones Negative (Negative) 05/24/19 20:10 Urine Blood 1+ (Negative) A 05/24/19 20:10 Urine Nitrate Negative (Negative) 05/24/19 20:10 Urine Bilirubin Negative (Negative) 05/24/19 20:10 Urine Urobilinogen Negative (Negative) 05/24/19 20:10 Ur Leukocyte Esterase 1+ (Negative) A 05/24/19 20:10 Urine WBC (Auto) 1+(6-10/hpf) (Absent) A 05/24/19 20:10 Urine RBC (Auto) 1+(3-5/hpf) (Absent) A 05/24/19 20:10 Ur Squamous Epith Cells Present (Absent) A 05/24/19 20:10 Urine Bacteria Absent (Absent) 05/24/19 20:10 Urine Glucose Negative (Negative) 05/24/19 20:10 Blood Type B Negative 05/24/19 21:06 Antibody Screen Negative 05/24/19 21:06
[2019-05-26] MEDS: Enoxaparin(*) 40 MG/0.4 ML SYR SUBCUT SCH (12:11)
[2019-05-26] MEDS: Acetaminophen TAB* 325 MG PO PRN ×2 (12:13→20:18)
[2019-05-26] MEDS ORDERED: Senna TAB 8.6 mg* TAB PO PRN (13:12)
--- NOTE | 2019-05-26 13:57 | PN ---
Subjective Date of Service: 05/26/19 Interval History: Pt states that she has been having some pain to her R hip/thigh but that she believes her pain is manageable with the medications she has been getting. Denies any fever, chills, headache, CP, SOB, N/V, difficulty urinating, numbness /tingling. Objective Active Medications: Acetaminophen (Tylenol Tab*) 650 mg PO Q4H PRN PRN Reason: PAIN - MILD Last Admin: 05/26/19 12:13 Dose: 650 mg Acetaminophen (Tylenol Tab*) 650 mg PO Q4H PRN PRN Reason: MILD PAIN or TEMP > 100.4 Last Admin: 05/25/19 21:57 Dose: 650 mg Cholecalciferol (Vitamin D Tab*) 1,000 units PO DAILY [facility] Last Admin: 05/26/19 08:33 Dose: 1,000 units Docusate Sodium (Colace Cap*) 100 mg PO BID [facility] Last Admin: 05/26/19 08:33 Dose: 100 mg Enoxaparin Sodium (Lovenox(*)) 40 mg SUBCUT DAILY [facility] Last Admin: 05/26/19 12:11 Dose: 40 mg Sodium Chloride (Ns 0.9% 1000 Ml) 1,000 mls @ 100 mls/hr IV PER RATE [facility] Last Admin: 05/26/19 05:24 Dose: 100 mls/hr Cefazolin Sodium 1 gm/ Sodium (Chloride) 50 mls @ 200 mls/hr IVPB Q8H [facility] Stop: 05/26/19 16:14 Last Admin: 05/26/19 08:32 Dose: 200 mls/hr Morphine Sulfate (Morphine Inj (Syringe))*) 2 mg IV Q4H PRN PRN Reason: PAIN - SEVERE Ondansetron HCl (Zofran Inj*) 4 mg IV Q4H PRN PRN Reason: NAUSEA/VOMITING Oxycodone HCl (Roxycodone Tab*) 5 mg PO Q4H PRN PRN Reason: PAIN - MODERATE Last Admin: 05/26/19 01:04 Dose: 5 mg Oxycodone HCl (Roxycodone Tab*) 10 mg PO Q4H PRN PRN Reason: PAIN - SEVERE Last Admin: 05/26/19 12:12 Dose: 10 mg Senna (Senokot 8.6 Mg Tab*) 1 tab PO BEDTIME PRN PRN Reason: CONSTIPATION Vital Signs - 8 hr 05/26/19 05/26/19 05/26/19 07:44 08:14 10:15 Temperature 97.9 F Pulse Rate 82 Respiratory 18 20 Rate Blood Pressure 115/74 (mmHg) O2 Sat by Pulse 94 Oximetry 05/26/19 05/26/19 11:19 12:12 Temperature 99.5 F Pulse Rate 92 Respiratory 14 16 Rate Blood Pressure 117/77 (mmHg) O2 Sat by Pulse 95 Oximetry Oxygen Devices in Use Now: None Appearance: Sitting up in bed, NAD Eyes: No Scleral Icterus, - - PERRL Ears/Nose/Mouth/Throat: Clear Oropharnyx Respiratory: Symmetrical Chest Expansion and Respiratory Effort, Clear to Auscultation Cardiovascular: RRR Abdominal: NL Sounds; No Tenderness; No Distention Extremities: No Edema Skin: - - Incision to R hip covered with dressing, CDI Neurological: Alert and Oriented x 3 Nutrition: Taking PO's Result Diagrams: 05/26/19 05:29 05/26/19 05:29 Microbiology and Other Data: Microbiology 05/24/19 20:10 Urine Culture - Final Urine Diagnostic Imaging: Surgical History Surgical History Yes Surgery Procedure, Year, and hemorrhoid surgery 03/2019 Place disc hernia surgery 1993 Diagnostics Summary of EKG Findings [2024] EKG showed NSR with rate of 88 BPM, no ST elevations. ED physician has reviewed and interpreted this EKG. Assess/Plan/Problems-Billing Assessment: 64 yo Female with PMHx significant for HTN presented to the ED with CC of Fall and a fractured Right femoral neck. Fixation of R hip with cannulated screws with on 05/25. - Patient Problems (1) Hip fracture, right Current Visit: Yes Status: Acute Code(s): S72.001A - FRACTURE OF UNSP PART OF NECK OF RIGHT FEMUR, INIT SNOMED Code(s): 875456400 Comment: Admit to medicine on SSU RCRI score 0 giving her a class 1 risk of cardiac event, no other significant contributing factors that would increase risk of procedure, at this time no further cardiac evaluation is needed, pt is an acceptable candidate to proceed with surgery Fixation of R hip with on 05/25 - pain control with medications and supportive measures - bowel regimen added (pt declining MOM at this time) - Incision management per ortho (2) HTN (hypertension), benign Current Visit: Yes Status: Acute Code(s): I10 - ESSENTIAL (PRIMARY) HYPERTENSION SNOMED Code(s): 44335955 Comment: Remains stable, may restart ACEI and HCTZ tomorrow - continue to monitor BPs (3) Full code status Current Visit: Yes Status: Acute Code(s): Z78.9 - OTHER SPECIFIED HEALTH STATUS SNOMED Code(s): 747509016 (4) DVT prophylaxis Current Visit: Yes Status: Acute Code(s): Z29.9 - ENCOUNTER FOR PROPHYLACTIC MEASURES, UNSPECIFIED SNOMED Code(s): 160192326 Comment: SCDs lovenox sq Status and Disposition: Status: Stable Disposition: SSU Attending: Jose Wisdom
[2019-05-27] MEDS: Acetaminophen TAB* 325 MG PO PRN ×3 (00:07→15:21)
[2019-05-27] MEDS: oxyCODONE TAB* 5 MG TAB PO PRN ×3 (00:07→15:20)
[2019-05-27 07:07] LABS: Hematocrit 30 % (35-47); Hemoglobin 10.6 g/dL (12.0-16.0); Mean Corpuscular HGB Conc 35 g/dL (31-36); Mean Corpuscular Hemoglobin 31 pg (27-31); Mean Corpuscular Volume 89 fL (80-97); Mean Platelet Volume 8.1 fL (7.4-10.4); Platelet Count 199 10^3/uL (150-450); Red Blood Count 3.41 10^6 /uL (3.70-4.87); Red Cell Distribution Width 13 % (10-15); White Blood Count 7.1 10^3/uL (3.5-10.8)
[2019-05-27] MEDS: Enoxaparin(*) 40 MG/0.4 ML SYR SUBCUT SCH (07:37)
[2019-05-27] MEDS: Docusate CAP* 100 MG PO SCH (07:37)
[2019-05-27] MEDS: Cholecalciferol TAB* 1000 UNITS PO SCH (07:37)
--- NOTE | 2019-05-27 10:05 | PN ---
Progress Note - Progress Note Date of Service: 05/27/19 SOAP: Subjective: [The pt was seen this morning. She was sitting up in bed today. She states that she is doing okay. She states that overnight she was able to walk the entire unit multiple times without issue. She denies any numbness or tingling, no other joint pain. Denies any chest pain or SOB. ] Objective: [General: Pt is alert and oriented x3. NAD MSK, RLE: Dressing is c/d/i. Dressing was changed. Incision is c/d/i. calves are soft and non tender. 2 + DP pulse. Vital Signs Temp 97.5 F 05/27/19 07:26 Pulse 90 05/27/19 07:26 Resp 20 05/27/19 07:38 BP 130/78 05/27/19 07:26 Pulse Ox 96 05/27/19 07:30 Intake & Output 05/26/19 05/27/19 05/27/19 18:59 06:59 18:59 Intake Total 1035 800 Output Total 2500 200 250 Balance -1465 600 -250 Intake: IVPB 55 ABX - CEFAZOLIN 55 Oral 980 800 Output: Urine 2500 200 250 Other: Estimated Stool Amount Medium ] Assessment: [POSTOPERATIVE DIAGNOSIS: Right basicervical femoral neck hip fracture. PROCEDURE: Right hip fracture surgical fixation with cannulated screws. ] Plan: [Continue with 50% WB on the Right lower extremity We will send Xarelto 10mg daily for 30 days DC home today per hospitalists ]
[2019-05-27 15:46] VITALS: BP 121/84
--- NOTE | 2019-05-28 00:24 | DS ---
AMENDED REPORT NOW INCLUDES DESIGNATED COSIGNER - ESIGNED BEFORE ADJUSTMENTS DISCHARGE SUMMARY: DATE OF ADMISSION: 05/24/19 DATE OF DISCHARGE: 05/27/19 PRIMARY CARE PHYSICIAN: The patient is being setup with [facility]. ATTENDING PHYSICIAN: Dr. Elizabeth * (dictated by Yared Ocampo NP). CONSULTING PHYSICIAN: Dr. Nichole with Orthopedics. PRIMARY DIAGNOSIS: Right hip fracture. SECONDARY DIAGNOSIS: Hypertension. PROCEDURES: Right hip fracture surgical fixation with cannulated screws on 07/[address] Nichole. HISTORY OF PRESENT ILLNESS AND HOSPITAL COURSE: Ms. Garcia is a 64-year-old female with past medical history significant for hypertension. She presented to the emergency department on 05/24/19 with a proximal right femoral neck fracture. ED provider report states that she tripped over a metal toolbox on 06/09 and landed on her right hip. She was having lots of difficulty walking and lots of pain. A CT of the pelvis showed a proximal right femoral neck fracture. Dr. Nichole from Orthopedics was consulted. Hospital Medicine was asked to evaluate the patient for admission. On 05/25/19, she had a fixation of her right hip with Dr. Nichole. Her vital signs have remained fairly stable throughout the stay. She has had elevations in heart rate in the 90s and low 100s likely in relation to pain. She has done very well with physical therapy during her admission while maintaining 50% weightbearing precautions throughout her right lower extremity. She has developed a mild anemia, last H and H 10.6 and 30; however, she was not anemic prior to surgery. Otherwise, her lab work has been fairly benign. She will be leaving on Xarelto for anticoagulation after surgery, this has been sent in by the orthopedic group as well as her pain medication. This case has been discussed with my attending physician, Dr. Elizabeth and it is agreed that the patient is acceptable for discharge today. DIAGNOSTIC STUDIES/LAB DATA: Studies: EKG shows sinus rhythm, no ST elevations or depressions, rate of 88. 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 Otherwise, no active cardiopulmonary disease. Lab values: WBC 7.1, RBC 3.41, hemoglobin 10.6, hematocrit 30, platelet count 199. INR 1.09, aPTT 34.5. UA showed 1+ blood, 1+ leukocyte esterase, 1+ wbc, 1 + rbc, present squamous epithelial cells. Otherwise unremarkable. REVIEW OF SYSTEMS: A 10-point review of systems was completed with this patient. Please see HPI for all pertinent positives and negatives. PHYSICAL EXAMINATION: Constitutional: The patient lying in bed, in no acute distress. Last Vital Signs: Temp 98.0, heart rate 102, respiratory rate 16, O2 saturation 95% on room air, blood pressure 126/85. HEENT: PERRL. No scleral icterus. Mucous membranes moist. Cardiovascular: Heart rate regular and fast at times. S1, S2 present. No murmurs, rubs, or gallops noted. Respiratory: Lung sounds clear throughout bilaterally. Good air movement. Normal respiratory effort. GI: Normoactive bowel sounds throughout. Abdomen: Soft, nontender. Musculoskeletal: Able to plantar and dorsiflex bilaterally. Equal strength bilaterally. Extremities: No edema. Pedal pulses present 2+ bilaterally. Skin: Incision to right hip covered by dressing; clean, dry and intact. Neuro: Alert and oriented x3. Cranial nerves grossly intact. Psych: Appeared really anxious this morning about going home, slightly emotional. DISCHARGE PLAN: 1. DASH diet. 2. Rolling walker for discharge. 3. Remain with 50% weightbearing precautions right lower extremity until otherwise instructed by orthopedic group. Continue with home/outpatient PT. 4. Right hip fracture. The patient will continue to follow with Orthopedics. Incision monitoring by visiting nurse service. Will have home/outpatient PT. Pain medication and anticoagulation prescribed and sent in by orthopedic group. The patient may take laxatives as needed while on narcotic pain medication. 5. Hypertension. BPs have remained stable while in the hospital, slightly elevated at times. May continue her usual blood pressure medications, which include lisinopril and hydrochlorothiazide. Can follow up with her PCP in 1 to 2 weeks. Concerning the chest x-ray which had the impression of diaphragmatic paralysis - Please note that the patient shows no clinical indication for concerns in relation to diaphragmatic paralysis, this finding may have been consistent with her particular positioning during imaging. Again, there is no clinical concern for this condition at this time. There is no reason to follow up about this at this time. 6. Return precautions. Call 911 with any chest pain or discomfort or unusual shortness of breath, or any other concerns that she thinks needed immediate attention. All other concerns could be deferred to her PCP. If related specifically to surgical site, she can follow up with Orthopedics. MEDICATIONS AT DISCHARGE: 1. Hydrochlorothiazide 25 mg p.o. daily. 2. Cholecalciferol/D3 cap 1000 units p.o. daily. 3. Lisinopril 5 mg p.o. daily. 4. Xarelto Rx sent per Orthopedics. 5. Percocet Rx sent per Orthopedics. Any information regarding I-STOP monitoring should be deferred to their notes. CONDITION AT DISCHARGE: Stable. DISPOSITION: Home. TIME SPENT: Approximately 1 hour spent on this discharge, with about half of that being [id number] with the patient regarding interview, exam, and reviewing plan of care and plan for discharge. This case has been discussed with my attending physician, Dr. Elizabeth, and she agrees with this plan. YRAED OCAMPO NP [id number]/CPS #: [id number] YVES
== END 2019-05-27 17:50 | disposition home health service (06) | DRG 308 ==
LOC: ED 19:46 → SSU 22:49
PROVIDERS: ADMIT Family Medicine; ATTEND Internal Medicine
PROC: 0QH604Z Insertion of Internal Fixation Device into Right Upper Femur, Open Approach (ICD-10-PCS; principal; 2019-05-25 17:30)
DX: S72.001A Fracture of unspecified part of neck of right femur, initial encounter for closed fracture (principal); W18.09XA Striking against other object with subsequent fall, initial encounter; I10 Essential (primary) hypertension; Y92.000 Kitchen of unspecified non-institutional (private) residence as the place of occurrence of the external cause; Z79.899 Other long term (current) drug therapy
CPT/HCPCS: 36415; 71046; 76000; 80048; 80053; 81003; 81015; 83605; 84484; 85025; 85027; 85610; 85730; 86850; 86900; 86901; 87086; 93005; 99284; A9270-GY; C1713; C1776; J0690; J1100; J1650; J2250; J2405; J2704; J3010

== ENCOUNTER 2019-06-08 17:15 | Inpatient (IN) | payer OTHER ==
--- OUTSIDE RECORDS SUMMARY | 2019-06-08 17:29 | XMS REPORT | Continuity of Care Document ---
:1955 External Reference #:[id number] Author Name Ambrosio Benitez MD (transmitted by agent of provider Shandra Kaplan) Address [address] [place] [id number] Care Team Providers Name Role Phone Ambrosio Benitez MD - Hospitalist Care Team Information Communication Instructor [phone] Problems Description No Information Available Social History Type Date Description Comments Sex Unknown Tobacco Use Start: Unknown Patient has never smoked Smoking Status Reviewed: 06/06/19 Patient has never smoked Allergies, Adverse Reactions, Alerts Description No Known Drug Allergies Medications Active Medications SIG Qnty Indications Ordering Date Provider Cyclobenzaprine HCL take 1 tablet by 30tabs Gonzalo Nichole, 10mg mouth every 8 MD 0 Tablets hours as needed for pain Colace 1 tab by mouth 60caps Gonzalo Dionisio, 100mg Capsules twice a day as MD 0 needed for constipation Xarelto take 1 tab per day 30tabs Gonzalosasha Nichole, 10mg Tablets x 30 days MD 0 Oxycodone HCL 1 - 2 tabs by 30caps Gonzalo Nichole, 5mg Capsules mouth every 6 MD 0 hours as needed pain Hydrochlorothiazide 1 by mouth every Unknown 25mg day 0 Tablets Vitamin D 1 by mouth every Unknown (Cholecalciferol) day 0 25mcg (1000 Ut) Tablets Lisinopril 1 by mouth every Unknown 5mg Tablets day 0 Percocet 1 - 2 tabs by Unknown 5-325mg Tablets mouth every 4 - 6 0 hours as needed for pain. Immunizations Description No Information Available Vital Signs Date Vital Result Comment 06/06/2019 8:11am Height 63 inches 5'3" Weight 148.00 lb Heart Rate 90 /min BP Systolic Sitting 102 mmHg BP Diastolic Sitting 64 mmHg Body Temperature 98.2 F O2 % BldC Oximetry 97 % BMI (Body Mass Index) 26.2 kg/m2 Results Description No Information Available Procedures Date Code Description Status 05/25/2019 91549 Percutaneous TX Of Femoral FX Completed Medical Devices Description No Information Available Encounters Description No Information Available Assessments Date Code Description Provider 06/06/2019 S72.044A Nondisplaced fracture of base of neck of right Ambrosio Benitez MD femur, initial encounter for closed fracture 06/06/2019 R22.41 Localized swelling, mass and lump, right lower Ambrosio Benitez MD limb 06/06/2019 R42 Dizziness and giddiness Ambrosio Benitez MD 05/25/2019 S72.044A Nondisplaced fracture of base of neck of right Gonzalo Nichole MD femur, initial encounter for closed fracture Plan of Treatment Future Appointment(s):06/08/2019 10:00 am - Gonzalo Nichole MD at [facility] at [id number]/08/2019 3:00 pm - Jett Zamarripa NP at [facility]06/06/2019 - NAEL [id number] Nondisplaced fracture of base of neck of right femur, initial encounter for closed wrtinkknM50.41 Localized swelling, mass and lump, right lower limbNew Xrays:CT Extremity Lower Right Wo, Ordered: 06/06/19VL Lower Ext Veins Right, Ordered: 06/06/19Comments: I would like to investigate whether or not you have a blood clot (get an ultrasound) or bleeding into your leg (with a CT scan and check your blood counts). Follow-up with Ortho on Thursday.Follow up:8 weeks.R42 Dizziness and giddinessComments:Please get the labs and stay well hydrated. You can hold the muscle relaxer if it is not helping. Functional Status Description No Information Available Mental Status Description No Information Available Referrals Description No Information Available
--- OUTSIDE RECORDS SUMMARY | 2019-06-08 17:29 | XMS REPORT ---
:1955 Author Organization [facility] Care Team Providers Name Role Phone Unavailable Unavailable Unavailable Problems Condition Condition Condition Status Onset Resolution Last Treating Comments Name Details Category Date Date Treatment Clinician Date Fracture of Fracture of Diagnosis Active 2020 [facility] #[id number] neck of neck of right right femur, femur, initial initial encounter encounter for closed for closed fracture fracture Endo/[place] anti-coagul Endo/[place] Active 2020-0 Jasmyne ation 3-11 (Chela) therapy 09:00: Maria Elena [id number] Elimination urinary Eliminatio Active 20200 Jasmyne incontinenc n 3-11 (Chela) e 09:00: Maria Elena [id number] Safety risk for Safety Active 2020-0 Jasmyne hospitaliza 3-11 (Chela) tion 09:00: Maria Elena 00 [id number] Safety structural Safety Active 2020-0 Criselda barriers 3-11 Bhatia present 14:13: [id number] Safety fall risk Safety Active 2020-0 Criselda factor 3-11 Bhatia present 14:13: [id number] 00 Bed mobility/tr PT/OT: Bed Active 2020-0 Criselda Mobility/Tr ansfer Mobility/T 3-11 Bhatia ansfer device ransfer 14:13: [id number] present 00 Bed knowledge/s PT/OT: Bed Active 2020-0 Criselda Mobility/Tr kill Mobility/T 3-11 Bhatia ansfer deficit: pt ransfer 14:13: [id number] Balance/End balance/transmission and coordination engineer PT/OT: Active 2020-0 Criselda urance rdination Balance/En 3-11 Bhatia deficit durance 14:13: [id number] 00 Balance/End endurance PT/OT: Active 2020-0 Criselda urance deficit Balance/En 3-11 Bhatia durance 14:13: [id number] 00 Balance/End knowledge/s PT/OT: Active 2020-0 Criselda urance kill Balance/En 3-11 Bhatia deficit: pt durance 14:13: [id number] 00 Gait/Locomo stair PT/OT: Active 2020-0 Criselda tion management Gait/Locom 3-11 Bhatia problems req otion 14:13: [id number] Gait/Locomo gait PT/OT: Active 2020-0 Criselda tion assistive Gait/Locom 3-11 Bhatia problems device otion 14:13: [id number] present 00 Gait/Locomo gait PT/OT: Active 2020-0 Criselda tion deficit Gait/Locom 3-11 Bhatia problems otion 14:13: [id number] 00 Gait/Locomo knowledge/s PT/OT: Active 2020-0 Criselda tion kill Gait/Locom 3-11 Bhatia problems deficit: pt otion 14:13: [id number] 00 Cardio hypertensio Cardiovasc Active 2020-0 DIDI n ular 3-13 [facility] 09:00: #[id number] 00 Integument skin Integument Active 2020-0 DIDI integrity 3-13 [facility] risk 09:00: #[id number] 00 Neuro anxiety Neuro/Emot Active 2020-0 DIDI present ion 3-13 [facility] 09:00: #[id number] 00 Safety can be left Safety Active 2020-0 DIDI alone for 3-13 [facility] only short 09:00: #[id number] periods 00 Medication oral med Meds Active 2020-0 DIDI assistance 3-13 [facility] required 09:00: #[id number] 00 Musculoskel requires Musculoske Active 2020-0 DIDI etal human letal 3-13 [facility] assist to 09:00: #[id number] leave home 00 Bed transfer PT/OT: Bed Active 2020-0 Paul Mobility/Tr deficit: Mobility/T 3-13 gB chen sit/stand ransfer 16:10: [id number] 00 Bed bed PT/OT: Bed Active 2020-0 Paul Mobility/Tr mobility Mobility/T 3-13 Bg chen deficit ransfer 16:10: [id number] 00 Cardio edema Cardiovasc Active 2020-0 DIDI ular 06-06 11:01: #[id number] 00 Respiratory dyspnea Respirator Active 2020-0 DIDI present y 06-06 11:01: #[id number] 00 Elimination constipatio Eliminatio Active 2020-0 DIDI n n 06-06 11:01: #[id number] 00 Musculoskel transfer Musculoske Active 2019-0 DIDI etal assistance letal 06-06 required 11:01: #[id number] 00 Allergies, Adverse Reactions, Alerts Allergy Allergy Status Severity Reaction(s) Onset Inactive Treating Comments Name Type Date Date Clinician Unknown None Active Unknown None Unknown No Known Allergies For This Patient Medications Ordered Filled Start Stop Current Ordering Indication Dosage Frequency Signature Comments Components Medication Medication Date Date Medication? Clinician (SIG) Name Name Xarelto 10 Xarelto 10 2020-0 Yes Dionisio Unknown Unknown mg tablet mg tablet 3 MDGonzalo A oxyCODONE 5 oxyCODONE 5 2019-0 Yes Dionisio Unknown Unknown mg tablet mg tablet 3 MDGonzalo A Colace 100 Colace 100 2020-0 Yes Dionisio Unknown Unknown mg capsule mg capsule 05-26 MDGonzalo A Tylenol Tylenol 0 Yes Dionisio Unknown Unknown Extra Extra 3- MDGonzalo A Strength Strength 500 mg 500 mg tablet tablet Vitamin D3 Vitamin D3 2019-0 Yes Dionisio Unknown Unknown 5,000 unit 5,000 unit 3- MDGonzalo A tablet tablet Vital Signs Vital Name Observation Time Observation Value Comments SYSTOLIC mm[Hg] 2019-06-07 18:10:55 100 mm[Hg] mm[Hg] Method: Sit DIASTOLIC mm[Hg] 2019-06-07 18:10:55 70 mm[Hg] mm[Hg] Method: Sit PULSE 2019-06-07 18:10:55 127 /min /min RESP RATE 2019-06-07 18:10:55 16 /min /min TEMP 2019-06-07 18:10:55 99.6 [degF] Procedures This patient has no known procedures. Results This patient has no known results.
--- OUTSIDE RECORDS SUMMARY | 2019-06-08 17:29 | XMS REPORT | Continuity of Care Document ---
:1955 External Reference #:[id number] Author Name MARISSA Mann (transmitted by agent of provider Joya Navarro) Address [address] [place] [address] Care Team Providers Name Role Phone Ambrosio Benitez MD - Hospitalist Care Team Information Can Technician [phone] Problems Description No Information Available Social History Type Date Description Comments Sex Unknown Tobacco Use Start: Unknown Patient has never smoked Smoking Status Reviewed: 06/06/19 Patient has never smoked Allergies, Adverse Reactions, Alerts Description No Known Drug Allergies Medications Active Medications SIG Qnty Indications Ordering Date Provider Cyclobenzaprine HCL take 1 tablet by 30tabs Gonzalosasha Nichole, 10mg mouth every 8 MD 0 Tablets hours as needed for pain Colace 1 tab by mouth 60caps Gonzalo Dionisio, 100mg Capsules twice a day as MD 0 needed for constipation Xarelto take 1 tab per day 30tabs Gonzalo Dionisio, 10mg Tablets x 30 days MD 0 Oxycodone HCL 1 - 2 tabs by 30caps Gonzalo Dionisio, 5mg Capsules mouth every 6 MD 0 [...] Available Procedures Date Code Description Status 05/25/2019 18365 Percutaneous TX Of Femoral FX Completed Medical Devices Description No Information Available Encounters Type Date Location Provider Dx Diagnosis Office Visit 05/26/2019 [facility] Kirstie Aries, S72.001A Fracture of unsp 11:11a Assoc,pc LEAD ATG DEVELOPER part of neck of Hospitalists right femur, init I10 Essential (primary) hypertension Office Visit 05/25/2019 11:10a [facility] Kirstie S72.001A Fracture of Assoc,pc Chris, LEAD ATG DEVELOPER unsp part of Hospitalists neck of right femur, init I10 Essential (primary) hypertension Office Visit 05/24/2019 [facility] Terri Elizabeth, S72.001A Fracture of 11:10a richard Bynum M.D. unsp part of Hospitalists neck of right femur, init I10 Essential (primary) hypertension W19.xxxA Unspecified fall, initial encounter Assessments Date Code Description Provider 06/06/2019 S72.044A Nondisplaced fracture of base of neck of Ambrosio Benitez MD right femur, initial encounter for closed fracture 06/06/2019 R22.41 Localized swelling, mass and lump, right Ambrosio Benitez MD lower limb 06/06/2019 R42 Dizziness and giddiness Ambrosio Benitez MD 05/26/2019 S72.001A Fracture of unspecified part of neck of Kirstie Chris, LEAD ATG DEVELOPER right femur, initial encounter for closed fracture 05/26/2019 I10 Essential (primary) hypertension MARISSA Mann 05/25/2019 S72.001A Fracture of unspecified part of neck of Kirstie Chris, LEAD ATG DEVELOPER right femur, initial encounter for closed fracture 05/25/2019 S72.044A Nondisplaced fracture of base of neck of Gonzalo Nichole MD right femur, initial encounter for closed fracture 05/25/2019 I10 Essential (primary) hypertension MARISSA Mann 05/24/2019 S72.001A Fracture of unspecified part of neck of Terri Elizabeth M.D. right femur, initial encounter for closed fracture 05/24/2019 I10 Essential (primary) hypertension Terri Elizabeth M.D. 05/24/2019 W19.xxxA Unspecified fall, initial encounter Terri Elizabeth M.D. Plan of Treatment Future Appointment(s):06/08/2019 10:00 am - Gonzalo Nichole MD at [facility] at [id number]/08/2019 3:00 pm - Jett Zamarripa NP at [facility]06/06/2019 - Ambrosio Benitez, MDS72.044A Nondisplaced fracture of base of neck of right femur, initial encounter for closed wkipvaklY02.41 Localized swelling, mass and lump, right lower [...]
--- OUTSIDE RECORDS SUMMARY | 2019-06-08 17:29 | XMS REPORT ---
:1955 Author Organization [facility] Care Team Providers Name Role Phone Unavailable Unavailable Unavailable Problems Condition Condition Condition Status Onset Resolution Last Treating Comments Name Details Category Date Date Treatment Clinician Date Fracture of Fracture of Diagnosis Active [facility] #[id number] neck of neck of right right femur, femur, initial initial encounter encounter for closed for closed fracture fracture Allergies, Adverse Reactions, Alerts Allergy Allergy Status Severity Reaction(s) Onset Inactive Treating Comments Name Type Date Date Clinician Unknown None Active Unknown None Unknown No Known Allergies For This Patient Medications Ordered Filled Start Stop Current Ordering Indication Dosage Frequency Signature Comments Components Medication Medication Date Date Medication? Clinician (SIG) Name Name No Known No Known No None None None Medications Medications For This For This Patient Patient Procedures This patient has no known procedures. Results This patient has no known results.
--- OUTSIDE RECORDS SUMMARY | 2019-06-08 17:29 | XMS REPORT ---
:1955 Author Organization [facility] Care Team Providers Name Role Phone Unavailable Unavailable Unavailable Problems Condition Condition Condition Status Onset Resolution Last Treating Comments Name Details Category Date Date Treatment Clinician Date Fracture of Fracture of Diagnosis Active 2020-0 [facility] unspecified [facility]29 [facility] part [facility] #[id number] neck of neck of right right femur, femur, initial initial encounter encounter for closed for closed fracture fracture Endo/[place] anti-coagul Endo/[place] Active 2020-0 Jasmyne ation 3-11 (Chela) therapy 09:00: Maria Elena [id number] Elimination urinary Eliminatio Active 20200 Jasmyne incontinenc n 3-11 (Chela) e 09:00: Maria Elena [id number] Safety risk for Safety Active 2020-0 Jasmyne hospitaliza 3-11 (Chela) tion 09:00: Maria Elena 00 [id number] Safety structural Safety Active 2020-0 Criselda barriers 3-11 Bhatia present 14:13: [id number] Safety fall risk Safety Active 2020-0 Criselda factor 3-11 Bhatia present 14:13: [id number] 00 Bed mobility/tr PT/OT: Bed Active 2020-0 Criselda Mobility/Tr ansfer Mobility/T 3-11 Bhatia ansfer device ransfer 14:13: [id number] present 00 Bed knowledge/s PT/OT: Bed Active 2020-0 Criselda Mobility/Tr kill Mobility/T 3-11 Bhatia ansfer deficit: pt ransfer 14:13: [id number] 00 Balance/End balance/coordinate measuring machine programmer PT/OT: Active 2020-0 Criselda urance rdination Balance/En 3-11 Bhatia deficit durance 14:13: [id number] 00 Balance/End endurance PT/OT: Active 2020-0 Criselda urance deficit Balance/En 3-11 Bhatia durance 14:13: [id number] 00 Balance/End knowledge/s PT/OT: Active 2020-0 Criselda urance kill Balance/En 3-11 Bhatia deficit: pt durance 14:13: [id number] 00 Gait/Locomo stair PT/OT: Active 2020-0 Criselda tion management Gait/Locom 3-11 Bhatia problems req otion 14:13: [id number] 00 Gait/Locomo gait PT/OT: Active 2020-0 Criselda tion assistive Gait/Locom 3-11 Bhatia problems device otion 14:13: [id number] present 00 Gait/Locomo gait PT/OT: Active 2020-0 Criselda tion deficit Gait/Locom 3-11 Bhatia problems otion 14:13: [id number] 00 Gait/Locomo knowledge/s PT/OT: Active 2020-0 Criselda tion kill Gait/Locom 3-11 Bhatia problems deficit: pt otion 14:13: [id number] 00 Cardio hypertensio Cardiovasc Active 2019-0 DIDI n ular 3-13 [facility] 09:00: #[id number] 00 Medication oral med Meds Active 2019-0 DIDI assistance 3-13 [facility] required 09:00: #[id number] 00 Bed transfer PT/OT: Bed Active 2020-0 Paul Mobility/Tr deficit: Mobility/T 3-13 Bg chen sit/stand ransfer 16:10: [id number] 00 Bed bed PT/OT: Bed Active 2020-0 Paul Mobility/Tr mobility Mobility/T 3-13 Bg ríosfer deficit ransfer 16:10: [id number] 00 Allergies, Adverse Reactions, Alerts Allergy Allergy [...] Dionisio Unknown Unknown mg tablet mg tablet 3-06 ,Gonzalo A oxyCODONE 5 oxyCODONE 5 2020-0 Yes Dionisio Unknown Unknown mg tablet mg tablet 3-06 MD,Gonzalo A Colace 100 Colace 100 2019-0 Yes Dionisio Unknown Unknown mg capsule mg capsule 05-26 Gonzalo ARTEAGA Tylenol Tylenol 2019- Yes Dionisio Unknown Unknown Extra Extra 3- Gonzalo ARTEAGA Strength Strength 500 mg 500 mg tablet tablet Vitamin D3 Vitamin D3 2019- Yes Dionisio Unknown Unknown 5,000 unit 5,000 unit - Gonzalo ARTEAGA A tablet tablet Vital Signs Vital Name Observation Time Observation Value Comments SYSTOLIC mm[Hg] 2019-06-04 18:10:52 110 mm[Hg] mm[Hg] Method: Sit DIASTOLIC mm[Hg] 2019-06-04 18:10:52 60 mm[Hg] mm[Hg] Method: Sit PULSE 2019-06-04 18:10:52 60 /min /min RESP RATE 2019-06-03 18:10:51 16 /min /min TEMP 2019-06-04 18:10:52 97.9 [degF] Procedures This patient has no known procedures. Results This patient has no known results.
--- OUTSIDE RECORDS SUMMARY | 2019-06-08 17:29 | XMS REPORT | Continuity of Care Document ---
:1955 External Reference #:[id number] Author Name Gonzalo Nichole MD (transmitted by agent of provider Sayr Gunderson) Address [address] [place] [address] Care Team Providers Name Role Phone Ambrosio Benitez MD - Hospitalist Care Team Information Interventional Pain Physician [phone] Problems Active Problems Provider Date Closed fracture of base of neck of femur Abmrosio Benitez MD Onset: 06/06/2019 Localized superficial swelling of skin Ambrosio Benitez MD Onset: 06/06/2019 Dizziness and giddiness Ambrosio Benitez MD Onset: 06/06/2019 Constipation Ambrosio Benitez MD Onset: 06/06/2019 Essential hypertension Ambrosio Benitez MD Onset: 06/06/2019 Social History Type Date Description Comments Sex Unknown Tobacco Use Start: Unknown Patient smoking status is unknown Smoking Status Reviewed: 06/08/19 Patient smoking status is unknown ETOH Use Occasionally consumes alcohol Tobacco Use Start: Unknown Patient has never smoked Recreational Drug Use Denies Drug Use Exercise Type/Frequency Exercises regularly Allergies, Adverse Reactions, Alerts Description No Known Drug Allergies Medications Active Medications SIG Qnty Indications Ordering Date Provider Senna 1 by mouth every 30tabs K59.00 Ambrosio Benitez MD 8.6mg Tablets day 0 Cyclobenzaprine HCL take 1 tablet by 30tabs Gonzalo Nichole, 10mg mouth every 8 MD 0 Tablets hours as needed for pain Colace 1 tab by mouth 60caps Gonzalo Nichole, 100mg Capsules twice a day as MD 0 needed for constipation Xarelto take 1 tab per day 30tabs Gonzalo Nichole, 10mg Tablets x 30 days MD 0 Oxycodone HCL 1 - 2 tabs by 30caps Gonzalo Nichole, 5mg Capsules mouth every 6 MD 0 hours as needed pain Hydrochlorothiazide 1 by mouth every Unknown 25mg day 0 Tablets Vitamin D 1 by mouth every Unknown (Cholecalciferol) day 0 25mcg (1000 Ut) Tablets Lisinopril 1 by mouth every Unknown 5mg Tablets day 0 Immunizations Description No Information Available Vital Signs Date Vital Result Comment 06/08/2019 10:44am Height 63 inches 5'3" Weight 130.00 lb Heart Rate 106 /min BP Systolic 118 mmHg BP Diastolic 72 mmHg Respiratory Rate 12 /min Body Temperature 100.4 F Pain Level 7 BMI (Body Mass Index) 23.0 kg/m2 06/06/2019 8:11am Height 63 inches 5'3" Weight 148.00 lb Heart Rate 90 /min BP Systolic Sitting 102 mmHg BP Diastolic Sitting 64 mmHg Body Temperature 98.2 F O2 % BldC Oximetry 97 % BMI (Body Mass Index) 26.2 kg/m2 Results Description No Information Available Procedures Date Code Description Status 05/25/2019 27349 Percutaneous TX Of Femoral FX Completed 02/20/2019 38709512 Mammogram Completed 07/21/2017 95234688 Colonoscopy Completed Medical Devices Description No Information Available Encounters Type Date Location Provider Dx Diagnosis Office Visit 05/26/2019 [facility] Kirstie Chris S72.001A Fracture of unsp 11:11a richard Bynum CHIEF SCIENT[employer] OFFICER part of neck of Hospitalists right femur, init I10 Essential (primary) hypertension Office Visit 05/25/2019 11:10a [facility] Kirstie S72.001A Fracture of richard Bynum FNP unsp part of Hospitalists neck of right femur, init I10 Essential (primary) hypertension Office Visit 05/24/2019 [facility] Terri Elizabeth S72.001A Fracture of 11:10a richard Bynum M.D. unsp part of Hospitalists neck of right femur, init I10 Essential (primary) hypertension W19.xxxA Unspecified fall, initial encounter Assessments Date Code Description Provider 06/08/2019 S72.001A Fracture of unspecified part of neck of Gonzalo Nichole MD right femur, initial encounter for closed fracture 06/06/2019 S72.044D Nondisplaced fracture of base of neck of Ambrosio Benitez MD right femur, subsequent encounter for closed fracture with routine healing 06/06/2019 R22.41 Localized swelling, mass and lump, right Ambrosio Benitez MD lower limb 06/06/2019 R42 Dizziness and giddiness Ambrosio Benitez MD 06/06/2019 K59.00 Constipation, unspecified Ambrosio Benitez MD 06/06/2019 I10 Essential (primary) hypertension Ambrosio Benitez MD 05/26/2019 S72.001A Fracture of unspecified part of neck of Kirstie Chris, CHIEF SCIENT[employer] OFFICER right femur, initial encounter for closed fracture 05/26/2019 I10 Essential (primary) hypertension Kirstie Chris CHIEF SCIENTIFIC OFFICER 05/25/2019 S72.001A Fracture of unspecified part of neck of Kirstie Chris, CHIEF SCIENTIFIC OFFICER right femur, initial encounter for closed fracture 05/25/2019 S72.044A Nondisplaced fracture of base of neck of Gonzalo Nichole MD right femur, initial encounter for closed fracture 05/25/2019 I10 Essential (primary) hypertension Kirstie Chris CHIEF SCIENTIFIC OFFICER 05/24/2019 S72.001A Fracture of unspecified part of neck of Terri Elizabeth M.D. right femur, initial encounter for closed fracture 05/24/2019 I10 Essential (primary) hypertension Terri Elizabeth M.D. 05/24/2019 W19.xxxA Unspecified fall, initial encounter Terri Elizabeth M.D. Plan of Treatment Future Appointment(s):07/08/2019 3:00 pm - Jett Zamarripa NP at [facility] Internal Medicine - [facility]06/08/2019 - NAEL Iglesias72.001A Fracture of unspecified part of neck of right femur, initial encounter for closed fractureNew Xrays:Hip Right 2 Views And Pelvis [id number] - [id number], Ordered: 06/08/19Follow up:Follow Up: 1 month Functional Status Description No Information Available Mental Status Description No Information Available Referrals Description No Information Available
--- OUTSIDE RECORDS SUMMARY | 2019-06-08 17:29 | XMS REPORT ---
:1955 Author Organization [facility] Care Team Providers Name Role Phone Unavailable Unavailable Unavailable Problems Condition Condition Condition Status Onset Resolution Last Treating Comments Name Details Category Date Date Treatment Clinician Date Fracture of Fracture of Diagnosis Active 2020-0 DIDI unspecified unspecified 05-29 [facility] part of part of #[id number] neck of neck of right right femur, femur, initial initial encounter encounter for closed for closed fracture fracture Endo/[place]enton anti-coagul Endo/Denton Active 2020-0 Jasmyne ation 3-11 (Chela) therapy 09:00: Maria Elena [id number] Elimination urinary Eliminatio Active 20200 Jasmyne incontinenc n 3-11 (Chela) e 09:00: Maria Elena [id number] Safety risk for Safety Active 2020-0 Jasmyne hospitaliza 3-11 (Chela) tion 09:00: Maria Elena 00 [id number] Safety structural Safety Active 2020-0 Criselda barriers 3-11 Bhatia present 14:13: [id number] Safety fall risk Safety Active 2020-0 Criselda factor 3-11 Bhatia present 14:13: [id number] 00 Bed mobility/tr PT/OT: Bed Active 2020-0 Criselda Mobility/Tr ansfer Mobility/T 3-11 Bhatia ansfer device ransfer 14:13: [id number] present 00 Bed knowledge/s PT/OT: Bed Active 2020-0 Criselda Mobility/Tr kill Mobility/T 3-11 Bhatia ansfer deficit: pt ransfer 14:13: [id number] 00 Balance/End balance/music coordinator PT/OT: Active 2020-0 Criselda urance rdination Balance/En 3-11 Bhatia deficit durance 14:13: [id number] 00 Balance/End endurance PT/OT: Active 2020-0 Criselda urance deficit Balance/En 3-11 Bhatia durance 14:13: [id number] 00 Balance/End knowledge/s PT/OT: Active 2020-0 Criselda urance kill Balance/En 3-11 Bhatia deficit: pt durance 14:13: [id number] 00 Gait/Locomo stair PT/OT: Active 2020-0 Criselda tion management Gait/Locom 3-11 Bhatia problems req otion 14:13: [id number] 00 Gait/Locomo gait PT/OT: Active 2020-0 Criselda tion assistive Gait/Locom 3-11 Bhatai problems device otion 14:13: [id number] present 00 Gait/Locomo gait PT/OT: Active 2020-0 Criselda tion deficit Gait/Locom 3-11 Bhatia problems otion 14:13: [id number] 00 Gait/Locomo knowledge/s PT/OT: Active 2020-0 Criselda tion kill Gait/Locom 3-11 Bhatia problems deficit: pt otion 14:13: [id number] 00 Cardio hypertensio Cardiovasc Active 2019-0 DIDI n ular 3-13 [facility] 09:00: #[id number] Medication oral med Meds Active 2019-0 DIDI assistance 3-13 [facility] required 09:00: #[id number] 00 Bed transfer PT/OT: Bed Active 2020-0 Paul Mobility/Tr deficit: Mobility/T 3-13 Bg chen sit/stand ransfer 16:10: [id number] 00 Bed bed PT/OT: Bed Active 2020-0 Paul Mobility/Tr mobility Mobility/T 3-13 Bg ríosfer deficit ransfer 16:10: [id number] 00 Allergies, Adverse Reactions, Alerts Allergy Allergy [...]
--- OUTSIDE RECORDS SUMMARY | 2019-06-08 17:29 | XMS REPORT ---
:1955 Author Organization [facility] Care Team Providers Name Role Phone Unavailable Unavailable Unavailable Problems Condition Condition Condition Status Onset Resolution Last Treating Comments Name Details Category Date Date Treatment Clinician Date Fracture of Fracture of Diagnosis Active 2020 DID[facility] unspecified unspecified 05-29 [facility] of part of #[id number] neck of neck of right right femur, femur, initial initial encounter encounter for closed for closed fracture fracture Endo/Denton anti-coagul Endo/Denton Active 2020-0 Jasmyne ation 3-11 (Chela) therapy 09:00: Maria Elena [id number] Elimination urinary Eliminatio Active 20200 Jasmyne incontinenc n 3-11 (Chela) e 09:00: Maria Elena [id number] Safety risk for Safety Active 2020-0 Jasmyne hospitaliza 3-11 (Chela) tion 09:00: Maria Elena 00 [id number] Safety structural Safety Active 2020-0 Criselda barriers 3-11 Bhatia present 14:13: [id number] 00 Safety fall risk Safety Active 2020-0 Criselda factor 3-11 Bhatia present 14:13: [id number] 00 Bed mobility/tr PT/OT: Bed Active 2020-0 Criselda Mobility/Tr ansfer Mobility/T 3-11 Bhatia ansfer device ransfer 14:13: [id number] present 00 Bed knowledge/s PT/OT: Bed Active 2020-0 Criselda Mobility/Tr kill Mobility/T 3-11 Bhatia ansfer deficit: pt ransfer 14:13: [id number] 00 Balance/End balance/home school coordinator PT/OT: Active 2020-0 Criselda urance rdination Balance/En 3-11 Bhatia deficit durance 14:13: [id number] 00 Balance/End endurance PT/OT: Active 2020-0 Criselda urance deficit Balance/En 3-11 Bhatia durance 14:13: [id number] 00 Balance/End knowledge/s PT/OT: Active 2020-0 Criselda urance kill Balance/En 3-11 Bhatia deficit: pt durance 14:13: [id number] 00 Gait/Locomo stair PT/OT: Active 2020-0 Criselda tion management Gait/Locom 3-11 Bhatia problems req otion 14:13: [id number] 00 Gait/Locomo gait PT/OT: Active 2020-0 Criselda tion assistive Gait/Locom 3-11 Bhatia problems device otion 14:13: [id number] present 00 Gait/Locomo gait PT/OT: Active 2020-0 Criselda tion deficit Gait/Locom 3-11 Bhatia problems otion 14:13: [id number] 00 Allergies, Adverse Reactions, Alerts Allergy Allergy [...] Medications For This For This Patient Patient Vital Signs Vital Name Observation Time Observation Value Comments SYSTOLIC mm[Hg] 2019-06-02 18:10:50 130 mm[Hg] mm[Hg] Method: Sit DIASTOLIC mm[Hg] 2019-06-02 18:10:50 90 mm[Hg] mm[Hg] Method: Sit PULSE 2019-06-02 18:10:50 96 /min /min RESP RATE 2019-06-02 18:10:50 16 /min /min TEMP 2019-06-02 18:10:50 99.1 [degF] Procedures This patient has no known procedures. Results This patient has no known results.
--- OUTSIDE RECORDS SUMMARY | 2019-06-08 17:29 | XMS REPORT ---
:1955 Author Organization [facility] Care Team Providers Name Role Phone Unavailable Unavailable Unavailable Problems Condition Condition Condition Status Onset Resolution Last Treating Comments Name Details Category Date Date Treatment Clinician Date Fracture of Fracture of Diagnosis Active 2020- DIDI unspecified unspecified 05-29 [facility] part of part of #[id number] neck of neck of right right femur, femur, initial initial encounter encounter for closed for closed fracture fracture Endo/Denton anti-coagul Endo/Denton Active 2020-0 Jasmyne ation 3-11 (Chela) therapy 09:00: Maria Elena [id number] Elimination urinary Eliminatio Active 20200 Jasmyne incontinenc n 3-11 (Chela) e 09:00: Maria Elena [id number] Safety risk for Safety Active 2020-0 Jasmyne hospitaliza 3-11 (Chela) tion 09:00: Maria Elena 00 [id number] Safety structural Safety Active 2020-0 Criselda barriers 3-11 Bhatia present 14:13: [id number] 00 Safety fall risk Safety Active 2020-0 Criselda factor 3-11 Bhatia present 14:13: [id number] 00 Bed mobility/tr PT/OT: Bed Active 2020-0 Criselda Mobility/Tr ansfer Mobility/T 3-11 Bhatia ansfer device ransfer 14:13: [id number] present 00 Bed knowledge/s PT/OT: Bed Active 2020-0 Criselda Mobility/Tr kill Mobility/T 3-11 Bhatia ansfer deficit: pt ransfer 14:13: [id number] 00 Balance/End balance/branch coordinator PT/OT: Active 2020-0 Criselda urance rdination Balance/En 3-11 Bhatia deficit durance 14:13: [id number] 00 Balance/End endurance PT/OT: Active 2020-0 Criselda urance deficit Balance/En 3-11 Bhatia durance 14:13: [id number] 00 Balance/End knowledge/s PT/OT: Active 2020-0 Criselda urance kill Balance/En 3-11 Bhatia deficit: pt durance 14:13: [id number] 00 Gait/Locomo stair PT/OT: Active 2020-0 Criselda tion management Gait/Locom 3-11 Bhatia problems req otion 14:13: [id number] 00 Gait/Locomo gait PT/OT: Active 2020-0 Criselda tion assistive Gait/Locom 3-11 Bhatia problems device otion 14:13: [id number] present 00 Gait/Locomo gait PT/OT: Active 2020-0 Criselda tion deficit Gait/Locom 3-11 Bhatia problems otion 14:13: [id number] 00 Gait/Locomo knowledge/s PT/OT: Active 2020-0 Criselda tion kill Gait/Locom 3-11 Bhatia problems deficit: pt otion 14:13: [id number] 00 Cardio hypertensio Cardiovasc Active 2020-0 DIDI n ular 3-13 [facility] 09:00: #[id number] 00 Integument skin Integument Active 2020-0 DIDI integrity 3-13 [facility] risk 09:00: #[id number] 00 Neuro anxiety Neuro/Emot Active 2020-0 DIDI present ion 3-13 [facility] 09:00: #[id number] 00 Safety can be left Safety Active 2020-0 DIDI alone for 3-13 [facility] only short 09:00: #[id number] periods 00 Medication oral med Meds Active 2020-0 DIDI assistance 3-13 [facility] required 09:00: #[id number] 00 Musculoskel requires Musculoske Active 2020-0 DIDI etal human letal 3-13 [facility] assist to 09:00: #[id number] leave home 00 Bed transfer PT/OT: Bed Active 2020-0 Paul Mobility/Tr deficit: Mobility/T 3-13 Bg chen sit/stand ransfer 16:10: [id number] 00 Bed bed PT/OT: Bed Active 2020-0 Paul Mobility/Tr mobility Mobility/T 3-13 Bg chen deficit ransfer 16:10: [id number] 00 Allergies, Adverse Reactions, Alerts Allergy Allergy [...] Dionisio Unknown Unknown mg tablet mg tablet 3- MD,Gonzalo A oxyCODONE 5 oxyCODONE 5 2020-0 Yes Dionisio Unknown Unknown mg tablet mg tablet 05-26 MD,Gonzalo A Colace 100 Colace 100 2020-0 Yes Dionisio Unknown Unknown mg capsule mg capsule 05-26 MD,Gonzalo A Tylenol Tylenol 2019-0 Yes Dionisio Unknown Unknown Extra Extra 3 MD,Gonzalo A Strength Strength 500 mg 500 mg tablet tablet Vitamin D3 Vitamin D3 2019-0 Yes Dionisio Unknown Unknown 5,000 unit 5,000 unit 05-26 MD,Gonzalo A tablet tablet Vital Signs Vital Name [...]
--- OUTSIDE RECORDS SUMMARY | 2019-06-08 17:29 | XMS REPORT ---
:1955 Author Organization [facility] Care Team Providers Name Role Phone Unavailable Unavailable Unavailable Problems Condition Condition Condition Status Onset Resolution Last Treating Comments Name Details Category Date Date Treatment Clinician Date Fracture of Fracture of Diagnosis Active [facility] unspecified [facility] #[id number] neck of neck of right right femur, [...]
--- OUTSIDE RECORDS SUMMARY | 2019-06-08 17:29 | XMS REPORT ---
:1955 Author Organization [facility] Care Team Providers Name Role Phone Unavailable Unavailable Unavailable Problems Condition Condition Condition Status Onset Resolution Last Treating Comments Name Details Category Date Date Treatment Clinician Date Fracture of Fracture of Diagnosis Active 2020- DIDI unspecified unspecified 05-29 [facility] part of part of #[id number] neck of neck of right right femur, femur, initial initial encounter encounter for closed for closed fracture fracture Endo/Denton anti-coagul Endo/Denton Active 2020-0 Jasmyne ation 3-11 (Chela) therapy 09:00: Maria Elena [id number] Elimination urinary Eliminatio Active 20200 Jasmyne incontinenc n 3-11 (Chela) e 09:00: Maria Elena [id number] Safety risk for Safety Active 2020-0 Jasmyne hospitaliza 3-11 (Chela) tion 09:00: Maria Elena 00 [id number] Safety structural Safety Active 2020-0 Criselda barriers 3-11 Bhatia present 14:13: [id number] 00 Safety fall risk Safety Active 2020-0 Criselda factor 3-11 Bhatia present 14:13: [id number] 00 Bed mobility/tr PT/OT: Bed Active 2020-0 Criselda Mobility/Tr ansfer Mobility/T 3-11 Bhatia ansfer device ransfer 14:13: [id number] present 00 Bed knowledge/s PT/OT: Bed Active 2020-0 Criselda Mobility/Tr kill Mobility/T 3-11 Bhatia ansfer deficit: pt ransfer 14:13: [id number] 00 Balance/End balance/billing coordinator PT/OT: Active 2020-0 Criselda urance rdination Balance/En 3-11 Bhatia deficit durance 14:13: [id number] 00 Balance/End endurance PT/OT: Active 2020-0 Criselda urance deficit Balance/En 3-11 Bhatia durance 14:13: [id number] 00 Balance/End knowledge/s PT/OT: Active 2020-0 Criselda urance kill Balance/En 3-11 Bhatia deficit: pt durance 14:13: [id number] 00 Gait/Locomo stair PT/OT: Active 2020-0 Criselda tion management Gait/Locom 3-11 Bhatia problems req otion 14:13: [id number] 00 Gait/Locomo gait PT/OT: Active 2020-0 Criselda tion assistive Gait/Locom 3-11 Bhatia problems device otion 14:13: [id number] present 00 Gait/Locomo gait PT/OT: Active 2020-0 Criselda tion deficit Gait/Locom 3-11 Bhatia problems otion 14:13: [id number] 00 Gait/Locomo knowledge/s PT/OT: Active 2020-0 Criselda tion kill Gait/Locom 3-11 Bhatia problems deficit: pt otion 14:13: [id number] 00 Cardio hypertensio Cardiovasc Active 2019-0 DIDI n ular 3-13 [facility] 09:00: #[id number] 00 Medication oral med Meds Active 2019-0 DIDI assistance 3-13 [facility] required 09:00: #[id number] 00 Bed transfer PT/OT: Bed Active 2020-0 Paul Mobility/Tr deficit: Mobility/T 3-13 Bg chen sit/stand ransfer 16:10: [id number] 00 Bed bed PT/OT: Bed Active 2020-0 Paul Mobility/Tr mobility Mobility/T 3-13 Bg ríosfer deficit ransfer 16:10: [id number] 00 Allergies, Adverse Reactions, Alerts Allergy Allergy [...]
--- OUTSIDE RECORDS SUMMARY | 2019-06-08 17:29 | XMS REPORT | Continuity of Care Document ---
:1955 External Reference #:[id number] Author Name Terri Elizabeth M.D. (transmitted by agent of provider Joya Navarro) Address [address] [place] [address] Care Team Providers Name Role Phone Ambrosio Benitez MD - Hospitalist Care Team Information Car Repairer [phone] Problems Description No Information Available Social History [...] Available Procedures Date Code Description Status 05/25/2019 21745 Percutaneous TX Of Femoral FX Completed Medical Devices Description No Information Available Encounters Type Date Location Provider Dx Diagnosis Office Visit 05/24/2019 [facility] Terri Elizabeth, S72.001A Fracture of unsp 11:[facility] part of neck of Hospitalists right femur, init I10 Essential (primary) hypertension W19.xxxA Unspecified fall, initial encounter Assessments Date Code Description Provider 06/06/2019 S72.044A Nondisplaced fracture of base of neck of Ambrosio Benitez MD right femur, initial encounter for closed fracture 06/06/2019 R22.41 Localized swelling, mass and lump, right Ambrosio Benitez MD lower limb 06/06/2019 R42 Dizziness and giddiness Ambrosio Benitez MD 05/25/2019 S72.001A Fracture of unspecified part of neck of MARISSA Mann right femur, initial encounter for closed fracture 05/25/2019 S72.044A Nondisplaced fracture of base of neck of Gonzalo Nichole MD right femur, initial encounter for closed fracture 05/25/2019 I10 Essential (primary) hypertension KAYA MannP 05/24/2019 S72.001A Fracture of unspecified part of neck of Terri Elizabeth M.D. right femur, initial encounter for closed fracture 05/24/2019 I10 Essential (primary) hypertension Terri Elizabeth M.D. 05/24/2019 W19.xxxA Unspecified fall, initial encounter eTrri Elizabeth M.D. Plan of Treatment Future Appointment(s):06/08/2019 10:00 am - Gonzalo Nichole MD at [facility] at Yqtlhk6107/08/2019 3:00 pm - Jett Zamarripa NP at [facility] Internal Medicine - [facility]06/06/2019 - NAEL Baez72.044A Nondisplaced fracture of base of neck of right femur, initial encounter for closed whcjnoycC72.41 Localized swelling, mass and lump, right lower [...]
--- OUTSIDE RECORDS SUMMARY | 2019-06-08 17:29 | XMS REPORT | Continuity of Care Document ---
:1955 External Reference #:[id number] Author Name Gonzalo Nichole MD (transmitted by agent of provider Blaire Powell) Address [address] [place] [address] Care Team Providers Name Role Phone Ambrosio Benitez MD - Hospitalist Care Team Information Swimming Pool Serviceperson [phone] Problems Description No Information Available Social History Type Date Description Comments Sex Unknown Allergies, Adverse Reactions, Alerts Description No Information Available Medications Active Medications SIG Qnty Indications Ordering Provider Date Xarelto take 1 tab per 30tabs Gonzalo Nichole MD 05/27/2019 10mg Tablets day x 30 days Oxycodone HCL 1 - 2 tabs by 30caps Gonzalo Nichole MD 05/27/2019 5mg mouth every 6 Capsules hours as needed pain Immunizations Description No Information Available Vital Signs Description No Information Available Results Description No Information Available Procedures Date Code Description Status 05/25/2019 46041 Percutaneous TX Of Femoral FX Completed Medical Devices Description No Information Available Encounters Description No Information Available Assessments Date Code Description Provider 05/25/2019 S72.044A Nondisplaced fracture of base of neck of right Gonzalo Nichole MD femur, initial encounter for closed fracture Plan of Treatment Future Appointment(s):06/08/2019 10:00 am - Gonzalo Nichole MD at [facility] at Syvqrl6307/08/2019 3:00 pm - Jett Zamarripa NP at [facility] Internal Medicine - [facility]06/06/2019 8:00 am - Ambrosio Benitez MD at [facility] Internal Medicine - [address] Functional Status Description No Information Available Mental Status Description No Information Available Referrals Description No Information Available
--- OUTSIDE RECORDS SUMMARY | 2019-06-08 17:29 | XMS REPORT ---
:1955 Author Organization [facility] Care Team Providers Name Role Phone Unavailable Unavailable Unavailable Problems Condition Condition Condition Status Onset Resolution Last Treating Comments Name Details Category Date Date Treatment Clinician Date Fracture of Fracture of Diagnosis Active Kim unspecified unspecified 05-29 Wendela part of part of [id number] neck of neck of right right femur, [...]
--- OUTSIDE RECORDS SUMMARY | 2019-06-08 17:29 | XMS REPORT | Continuity of Care Document ---
:1955 External Reference #:[id number] Author Name MARISSA Mann (transmitted by agent of provider Joya Navarro) Address [address] [place] [address] Care Team Providers Name Role Phone Ambrosio Benitez MD - Hospitalist Care Team Information [employer] Pro[employer] [phone] Problems Description No Information Available Social History [...] Available Procedures Date Code Description Status 05/25/2019 88800 Percutaneous TX Of Femoral FX Completed Medical Devices Description No Information Available Encounters Type Date Location Provider Dx Diagnosis Office Visit 05/26/2019 [facility] Kirstie Aries, S72.001A Fracture of unsp 11:11a Assoc,[facility] [employer] part of neck of Hospitalists right femur, init I10 Essential (primary) hypertension Office Visit 05/25/2019 11:10a [facility] Kirstie S72.001A Fracture of Assoc,pc Chris, [employer] unsp part of Hospitalists neck of right femur, init I10 Essential (primary) hypertension Office Visit 05/24/2019 [facility] Terri Elizabeth, S72.001A Fracture of 11:10a [...] unspecified part of neck of Kirstie Chris, [employer] right femur, initial encounter for closed fracture 05/26/2019 I10 Essential (primary) hypertension MARISSA Mann 05/25/2019 S72.001A Fracture of unspecified part of neck of Kirstie Chris, [employer] right femur, initial encounter for closed fracture [...] 10:00 am - Gonzalo Nichole MD at [facility] at Htofxl2607/08/2019 3:00 pm - Jett Zamarripa NP at [facility] Internal Medicine - [facility]06/06/2019 - Ambrosio Benitez, [id number] Nondisplaced fracture of base of neck of right femur, initial encounter for closed [id number] Localized swelling, mass and lump, right lower [...]
[2019-06-08 17:59] LABS: ABS Basophils 0.1 10^3/ul (0-0.2); ABS Neutrophils 11.1 10^3/ul (1.5-7.7); Eosinophil % 0.2 %; Hematocrit 16 % (35-47); Hemoglobin 5.4 g/dL (12.0-16.0); Lymphocyte % 13.9 %; Mean Corpuscular HGB Conc 34 g/dL (31-36); Mean Corpuscular Hemoglobin 30 pg (27-31); Mean Corpuscular Volume 89 fL (80-97); Mean Platelet Volume 7.5 fL (7.4-10.4); Platelet Count 502 10^3/uL (150-450); Red Blood Count 1.79 10^6 /uL (3.70-4.87); Red Cell Distribution Width 13 % (10-15); White Blood Count 14.2 10^3/uL (3.5-10.8)
[2019-06-08] MEDS ORDERED: NS 0.9% 1000 ML** 1,000 ML IV ONE (18:04)
--- NOTE | 2019-06-08 18:07 | ED ---
Complex/Multi-Sys Presentation - HPI Summary HPI Summary: 64-year-old female with a significant past medical history of ORIF for right hip on 05/24/[address] Mcguire presents to the emergency department today after being sent from her primary care doctor, doctor Benitez due to a low hemoglobin level at 5.6. Patient was seen by her orthopod this morning and had her rebekah and dressing removed and was told incision looked like it is healing well. Patient had CT of the lower extremity done 2 days prior as there was concern for possible blood clot or hematoma formation near the surgical site which returned negative. Patient is currently in no acute distress resting comfortably on the hospital stretcher. Patient has evidence of tachycardia and fever. Patient denies recent exposure to those with known COVID -19 or travel. Patient denies cough, nasal congestion, sore throat, chest pain , abdominal pain, nausea, vomiting, diarrhea. Patient is on Xarelto for DVT prophylaxis status post surgery. - History Of Current Complaint Chief Complaint: EDExtremityLower Time Seen by Provider: 06/08/19 17:57 Hx Obtained From: Patient Onset/Duration: Gradual Onset Timing: Constant Severity Currently: Moderate Severity Initially: Mild Associated Signs And Symptoms: Positive: Anticoagulation Therapy - Allergies/Home Medications Allergies/Adverse Reactions: Allergies Allergy/AdvReac Type Severity Reaction Status Date / Time No Known Allergies Allergy Verified 06/08/19 17:23 Home Medications: Home Medications Cholecalciferol CAP/TAB(NF) [Vitamin D3 CAP/TAB (NF)] 1,000 unit PO DAILY [History Confirmed 06/08/19] Hydrochlorothiazide TAB* [Hydrodiuril TAB*] 25 mg PO DAILY 05/24/19 [History Confirmed 06/08/19] Lisinopril TAB* [Prinivil TAB 5 MG*] 5 mg PO DAILY 05/24/19 [History Confirmed 06/08/19] Docusate CAP* [Colace Cap*] 100 mg PO BID cap 05/27/19 [Rx Confirmed 06/08/19] Senna TAB 8.6 mg* [Senokot 8.6 mg TAB*] 1 tab PO BEDTIME PRN tab 05/27/19 [Rx Confirmed 06/08/19] PMH/Surg Hx/FS Hx/Imm Hx Cardiovascular History: Reports: Hx Hypertension GI History: Reports: Hx Gastroesophageal Reflux Disease Sensory History: Denies: Hx Contacts or Glasses, Hx Legally Blind, Hx Deafness, Hx Hearing Aid Opthamlomology History: Denies: Hx Contacts or Glasses, Hx Legally Blind Neurological History: Denies: Hx Headaches, Hx Seizures - Cancer History Cancer Type, Location and Year: skin cancer upper left arm - Surgical History Surgery Procedure, Year, and Place: hemorrhoid surgery 03/2019. disc hernia surgery 1993 Infectious Disease History: No Infectious Disease History: Denies: Traveled Outside the [place] in Last 30 Days - Family History Known Family History: Positive: Unknown Negative: Blood Disorder - Social History Alcohol Use: None Substance Use Type: Reports: None Smoking Status (MU): Never Smoked Tobacco Review of Systems Constitutional: Negative Eyes: Negative ENT: Negative Cardiovascular: Negative Respiratory: Negative Gastrointestinal: Negative Genitourinary: Negative Positive: Myalgia, Edema Positive: Bruising. Negative: Rash Neurological/Mental Status: Negative Psychological: Normal All Other Systems Reviewed And Are Negative: Yes Physical Exam - Summary Physical Exam Summary: Patient is in no acute distress. There is evidence of bilateral strabismus. Inspection of the patient's right hip shows evidence of healing surgical scar. No evidence of secondary infection. Palpation of the right hip shows mildly indurated area of ecchymosis consistent with recently diagnosed hematoma in the vastus lateralis muscle on the right. No evidence for significant hematoma and expansion on physical exam. Triage Information Reviewed: Yes Vital Signs On Initial Exam: Initial Vitals Temp Pulse Resp BP Pulse Ox 101.4 F 139 18 110/60 100 06/08/19 17:19 06/08/19 17:19 06/08/19 17:19 06/08/19 17:19 06/08/19 17:19 Vital Signs Reviewed: Yes Appearance: Positive: Well-Appearing, No Pain Distress, Well-Nourished Skin: Positive: Warm, Skin Color Reflects Adequate Perfusion, Pale Eyes: Positive: EOMI, DAIANA ENT: Positive: Hearing grossly normal Respiratory/Lung Sounds: Positive: Clear to Auscultation, Breath Sounds Present Cardiovascular: Positive: RRR, S1, S2 Abdomen Description: Positive: Nontender, Soft Musculoskeletal: Positive: Strength/ROM Intact Neurological: Positive: Sensory/Motor Intact, Alert, Oriented to Person Place, Time, Normal Gait, Facial Symmetry, Speech Normal Psychiatric: Positive: Normal, Affect/Mood Appropriate AVPU Assessment: Alert Procedures - Sedation Patient Received Moderate/Deep Sedation with Procedure: No Diagnostics - Vital Signs Vital Signs Temp Pulse Resp BP Pulse Ox 06/08/19 17:19 101.4 F 139 18 110/60 100 - Laboratory Lab Results: Lab Results 06/08/19 Range/Units 17:42 WBC 14.2 H (3.5-10.8) 10^3/uL RBC 1.79 L (3.70-4.87) 10^6 /uL Hgb 5.4 L* (12.0-16.0) g/dL Hct 16 L (35-47) % MCV 89 (80-97) fL MCH 30 (27-31) pg MCHC 34 (31-36) g/dL RDW 13 (10-15) % Plt Count 502 H (150-450) 10^3/uL MPV 7.5 (7.4-10.4) fL Neut % (Auto) 78.1 % Lymph % (Auto) 13.9 % [place] % (Auto) 7.2 % Eos % (Auto) 0.2 % Baso % (Auto) 0.6 % Absolute Neuts (auto) 11.1 H (1.5-7.7) 10^3/ul Absolute Lymphs (auto) 2.0 (1.0-4.8) 10^3/ul Absolute Monos (auto) 1.0 H (0-0.8) 10^3/ul Absolute Eos (auto) 0.0 (0-0.6) 10^3/ul Absolute Basos (auto) 0.1 (0-0.2) 10^3/ul Absolute Nucleated RBC 0.0 10^3/ul Nucleated RBC % 0.0 Result Diagrams: 06/08/19 17:42 06/08/19 17:42 Lab Statement: Any lab studies that have been ordered have been reviewed, and results considered in the medical decision making process. Complex Multi-Symp Course/Dx Course Of Treatment: EKG was done promptly which showed no evidence of STEMI. Sinus tachycardia at 126 bpm. Normal axis, MI, QT interval. There are T-wave inversions noted in lead 1, 2, V4, V5, V6. T-wave inversions are new compared to prior EKG done on 05/24/2019. The inversions are likely due to hypovolemia from acute blood loss anemia. Patient was given 2 units of packed red blood cells and 1 L normal saline for anemia. Patient was given 3.375 g Zosyn as she met sepsis criteria. Patient was given 975 mg Tylenol orally for fever. Laboratory studies returned showing White Blood cell 14.2, CRP is elevated at 178. hemoglobin 5.4, hematocrit 16. Laboratory studies done on 05/27/19 shows hemoglobin 10.6 and hematocrit 30. There are no significant electrolyte abnormality. Lactic acid 2.2. Influenza negative. patient is fecal occult positive, this could explain patient's anemia. Chest x-ray was done which showed elevation the left hemidiaphragm but was otherwise unremarkable no evidence of pneumonia. Urinalysis was obtained which showed contamination. Orthopedist, Dr. Nichole was consulted who did not believe repeat CT imaging of the lower extremity was Needed to investigate possible hematoma expansion. Patient was seen by him earlier this date and he was not concerned for possible septic joint. Hospitalist, Dr. Elizabeth was consulted for admission the patient for acute blood loss anemia, tachycardia, fever. Patient was admitted to [facility]. - Diagnoses Provider Diagnoses: Acute blood loss anemia, Elevated lactic acid level, Tachycardia, Fever Discharge ED - Sign-Out/Discharge Documenting (check all that apply): Patient Departure - Discharge Plan Condition: Stable Disposition: ADMITTED TO [facility] - Billing Disposition and Condition Condition: STABLE Disposition: Admitted to [facility]
[2019-06-08 18:09] LABS: Albumin 3.1 g/dL (3.2-5.2); Albumin/Globulin Ratio 1.1 (1-3); BUN/Creatinine Ratio 41.4 (8-20); Calcium 8.5 mg/dL (8.6-10.3); Globulin 2.9 g/dL (2-4); Potassium 3.4 mmol/L (3.5-5.0); Total Bilirubin 0.9 mg/dL (0.2-1.0)
[2019-06-08 18:35] LABS: Troponin I 0.01 ng/mL (<0.03)
[2019-06-08] MEDS ORDERED: Piperacillin/Tazobac ADVAN(*) 3.375 GM in NS 0.9% 100 ML* 100 ML IVPB ONE ×2 (18:36→22:12)
[2019-06-08 19:01] LABS: Influenza A Molecular Negative (Negative); Influenza B Molecular Negative (Negative)
[2019-06-08 19:35] LABS: C Reactive Protein 178.38 mg/L (<8.01)
[2019-06-08] MEDS ORDERED: Acetaminophen TAB* 325 MG PO ONE (19:40)
[2019-06-08] MEDS ORDERED: Iohexol 350* (CONTRAST) 500 ML MDV IV ONE (19:46)
[2019-06-08 20:51] LABS: Urine Appearance Clear; Urine Bilirubin Negative (Negative); Urine Blood 1+ (Negative); Urine Color Yellow; Urine Glucose Negative (Negative); Urine Ketones Negative (Negative); Urine Nitrite Negative (Negative); Urine Protein Negative (Negative); Urine Specific Gravity 1.012 (1.010-1.030); Urine Urobilinogen Negative (Negative)
[2019-06-08 20:56] LABS: Urine Bacteria Absent (Absent); Urine Red Blood Cell Trace(0-2/hpf) (Absent); Urine Squamous Epithelial Cell Present (Absent); Urine White Blood Cell 2+(11-20/hpf) (Absent)
[2019-06-08] MEDS ORDERED: Lactated Ringers 1000 ML Bag* 1,000 ML IV SCH (21:11)
[2019-06-08] MEDS ORDERED: Lactated Ringers 1000 ML Bag* 1,000 ML IV ONE (21:16)
[2019-06-08] MEDS ORDERED: Senna TAB 8.6 mg* TAB PO PRN (22:03)
[2019-06-08] MEDS ORDERED: Acetaminophen TAB* 325 MG PO PRN (22:04)
[2019-06-08] MEDS ORDERED: oxyCODONE/Acetamin 5/325 MG* TAB PO PRN (22:04)
[2019-06-08] MEDS ORDERED: Zosyn per Pharmacy* NOTE FOLLOW UP SCH (23:00)
--- NOTE | 2019-06-08 23:51 | HP ---
CC: Dr. Benitez; Dr. Nichole * HISTORY AND PHYSICAL: DATE OF ADMISSION: 06/08/19 PRIMARY CARE PROVIDER: Dr. Benitez. CHIEF COMPLAINT: Fever and anemia. HISTORY OF PRESENT ILLNESS: Yudy Garcia is a 64-year-old female with a history of hypertension, who had recent right hip ORIF on 05/25/19. The patient stated that originally she had a fall, slipped over a metal box, sustained a right hip fracture that required an ORIF and stayed at our facility. Dr. Nichole operated on the patient on 05/25/19. Postoperatively, she went home on 05/27/19. She did well, and she was placed on anticoagulation with Xarelto for DVT prophylaxis postoperatively. She stated that, due to taking Percocet for pain, she developed significant constipation. On Thursday which was 06/03/19, the patient stated she was straining a lot to have a bowel movement, and all of a sudden she experienced severe pain in her right postoperative hip. The thigh at that point became very swollen and painful. Also since Thursday she had been experiencing lightheadedness when she was trying to stand up or move. She stated that the pain and the weakness and lightheadedness were so severe that she was basically bedridden. She saw her primary care provider Dr. Benietz for a followup on . Dr. Benitez was concerned about the swelling of the right thigh and obtained a venous Doppler study which on 06/07/19 showed no evidence of DVT, but subcutaneous edema with small focal subcentimeter fluid collection in the popliteal fossa. In addition to that, a CT of the lower extremity was obtained when she went to [facility] on the same day. It showed "fluid collection in the vastus lateralis muscle measuring approximately 7.2 x 4.2 cm which may represent hematoma, although an inflammatory collection is not excluded. Subcutaneous edema is present." The patient stated that she went for regular followup with Dr. Nichole today who noted that the patient has hematoma, took her stitches out. The postoperative wound looked very well. She was also advised to be full weightbearing status on the right leg. Despite that her hemoglobin, when the lab work was checked today, was noted to be 5.6 and the patient was sent to the ED for evaluation. Here she started developing a fever and her temperature upon arrival was 101.8 degrees. Apart from pain in the right thigh, the patient denies any shortness of breath. No chest pain, no headache, and no other symptoms of an infectious process. Her stool turned out to be heme positive in the emergency department. The patient stated that she had been straining a lot to be able to have a bowel movement, and she had a large one on 06/06/19 but she is still constipated. She also had a recent hemorrhoidectomy in [place] before she moved to [place] this winter and the hemorrhoidectomy was performed in March of 2019, and she was told that she may have postoperative bleeding up to 3 months later. She denies any bright red blood per rectum or melena. PAST MEDICAL HISTORY: 1. Hemorrhoidectomy in March 2019 in [place]. 2. Hypertension. 3. Back surgery. 4. Hysterectomy. MEDICATIONS: At home include: 1. Senna 1 tablet at bedtime p.r.n. 2. Vitamin D3 1000 units daily. 3. Colace 100 mg b.i.d. She used to be on hydrochlorothiazide and lisinopril but after she was seen by her primary care provider 2 days ago, they were stopped because of low systolic blood pressures. ALLERGIES: No known drug allergies. FAMILY HISTORY: Mother of lymphoma at the age of 73. Father is well and alive at the age of 99. SOCIAL HISTORY: The patient denies any tobacco, alcohol, or drug use. She lives with her who is her surrogate. She moved from [place] to [place] just within the past month and a half. She is a full code. She currently ambulates with a roller walker due to her postoperative state. She is a crew trainer by profession. REVIEW OF SYSTEMS: Please see history of present illness. All the remaining 12 systems were reviewed with the patient and were otherwise negative. PHYSICAL EXAMINATION GENERAL: The patient is a very pleasant 64-year-old female who is in no acute distress. The patient is alert and oriented x3. VITAL SIGNS: Blood pressure of 99/72, heart rate of 115 and regular, respiratory rate 23, oxygen saturation 97% on room air, and temperature of 100.8. HEENT: Head: Atraumatic, normocephalic. Eyes: Pupils are equal and reactive to light and accommodation. Oropharynx clear. Mucosa moist. NECK: Supple. No JVD. No bruits bilaterally. RESPIRATORY: Clear to auscultation bilaterally. CARDIOVASCULAR: Regular rate and rhythm. Tachycardia. No murmur. ABDOMEN: Soft, nontender. Bowel sounds present in all 4 quadrants. EXTREMITIES: There is a large right thigh edema. The thigh is tender to palpation. There is a small incision of approximately 5 cm on the lateral thigh on the right side with sutures or rebekah that were removed. There was no wound dehiscence noted. The wound is healing well. There is no evidence of cellulitis. There is evidence of mild ecchymosis that appears to be resolving in the area of approximately 5 cm in diameter. There are no palpable or fluctuating masses, but once again the entire thigh is very swollen. On evaluation of bilateral ankles and feet, the patient has trace right ankle edema. There is no clubbing or cyanosis. Pulses peripherally are +2 bilaterally. NEUROLOGIC: Speech clear. Cranial nerves II through XII grossly intact. Motor strength is 5/5 bilaterally. LABORATORY DATA: White blood cell count 14.2, hemoglobin 5.4, hematocrit 16, and platelets 502. INR 1.09, PTT of 34.5. Sodium 133, potassium 3.4, chloride 101, carbon dioxide 24, BUN 24, creatinine 0.58. C-reactive protein of 178, lactic acid of 2.2. Urinalysis: Trace blood, trace esterase, positive wbc's, absent bacteria. Influenza testing was negative. Portable chest x-ray reviewed by myself prior to the official radiologist report shows chronic elevation of left hemidiaphragm and no evidence of infiltrate. The patient's EKG showed sinus tachycardia with heart rate 126 beats per minute with flattening of T-waves in V4 and V6. ASSESSMENT AND PLAN: 1. The patient was septic at admission, likely related to the hematoma. It is possible that the patient is generating leukocytosis and fever with organizing hematoma that may not necessarily be infected. It is also possible that the hematoma is infected. I spoke with the emergency department physician internet marketing assistant who spoke with Dr. Nichole. Dr. Nichole is planning to see the patient in the morning on 06/09/19. Per ER physician internet marketing assistant report, Dr. Nichole did not think that the hematoma is the source of the patient's fever. At this point, I do not see any other source of infection. The patient's urinalysis is mildly abnormal, but she has no urinary symptoms. 2. Anemia. The patient was anticoagulated and her Xarelto was just stopped by Dr. Nichole. She does have a hematoma in her thigh that could account for worsening of her anemia. She also has heme-positive stool, but I suspect this is related to the patient's recent hemorrhoidectomy and that the patient has been constipated. I do not believe the patient has had gastrointestinal bleed. She is constipated and blood is a natural laxative. She would normally likely have loose bowel movements if she was acutely bleeding from her GI tract. I suspect that the hematoma could be accounted for most of her blood loss. She is being transfused 2 units of packed red blood cells. We will check her hemoglobin and hematocrit in the morning. I will place her on IV Protonix for the time being twice a day. Once again, I do not believe she has an acute GI bleed at this point. 3. In regards to the patient's history of hypertension, currently she is mildly hypotensive due to her blood loss. We will continue gentle hydration and we will continue holding her outpatient medications. 4. For DVT prophylaxis, the patient will be placed on compression devices. All the anticoagulants are contraindicated due to the patient's hematoma and positive stool Hemoccult. 5. The patient's code status is full. Her surrogate is her . TIME SPENT: Approximately 72 minutes were spent on admission of this patient, more than half that time was spent [id number] with the patient during the interview and physical exam. [id number]/[facility] #: [id number] YVES
[2019-06-09] MEDS: Pantoprazole IV* 40 MG IV SCH ×3 (00:43→22:31)
[2019-06-09] MEDS: ZOSYN 3.375 GM Q8H per EXTENDED INFUSION IVPB SCH ×8 (00:46→22:28)
[2019-06-09] MEDS: NS 0.9% 1000 ML** 1,000 ML IV SCH ×2 (00:49→14:52)
--- NOTE | 2019-06-09 04:13 | PN ---
Sepsis Event Evaluation Date of Evaluation: 06/08/19 Time of Evaluation: 22:00 Current Stage of Sepsis: Severe Sepsis Vital Signs - Last 12 Hours: Vital Signs - 12 hr Temp Pulse Resp BP Pulse Ox 06/09/19 02:05 98.4 F 113 20 97/64 98 06/09/19 01:45 98.1 F 116 18 95/70 100 06/09/19 00:20 102/54 06/09/19 00:00 97.9 F 117 18 95/62 100 06/08/19 22:46 100.0 F 123 18 92/63 98 06/08/19 22:00 19 06/08/19 21:52 17 98/71 06/08/19 21:38 23 99/72 06/08/19 21:26 18 92/59 06/08/19 21:08 18 87/57 06/08/19 21:00 20 06/08/19 20:38 19 106/67 06/08/19 20:29 131 17 101/65 97 06/08/19 20:08 130 17 98/65 98 06/08/19 20:01 135 14 99 06/08/19 20:00 100.8 F 06/08/19 19:44 130 14 103/65 98 06/08/19 19:39 136 10 104/69 99 06/08/19 19:19 128 18 102/84 95 06/08/19 19:00 126 13 98 06/08/19 18:52 138 20 104/73 98 06/08/19 18:14 133 12 103/67 100 06/08/19 18:13 101.8 F 132 12 103/67 100 06/08/19 18:00 134 21 100 06/08/19 17:59 24 06/08/19 17:19 101.4 F 139 18 110/60 100 Lactic Acid: 06/08/19 06/08/19 17:41 22:47 Lactic Acid 2.2 H* 1.3 - Cardiopulmonary Exam Capillary Refill: Immediate Respiratory: Symmetrical Chest Expansion and Respiratory Effort Cardiovascular: NL Sounds; No Murmurs; No JVD, RRR - Peripheral Pulse Exam Radial Pulses: Bilateral Normal Pedal Pulses: Bilateral Normal Posterior Tibial Pulse: Bilateral Normal - Skin Exam Skin Exam: Normal Turgor - Cuero Coma Scale Best Eye Response: 4 - Spontaneous Best Motor Response: 6 - Obeys Commands Best Verbal Response: 5 - Oriented Coma Scale Total: 15 Assess/Plan/Problems-Billing Assessment:
[2019-06-09 06:48] LABS: ABS Basophils 0.1 10^3/ul (0-0.2); ABS Eosinophils 0.1 10^3/ul (0-0.6); ABS Lymphocytes 1.8 10^3/ul (1.0-4.8); ABS Monocytes 0.8 10^3/ul (0-0.8); ABS Neutrophils 7.1 10^3/ul (1.5-7.7); Eosinophil % 0.7 %; Hematocrit 19 % (35-47); Hemoglobin 6.6 g/dL (12.0-16.0); Lymphocyte % 18.1 %; Mean Corpuscular HGB Conc 35 g/dL (31-36); Mean Corpuscular Hemoglobin 30 pg (27-31); Mean Corpuscular Volume 86 fL (80-97); Mean Platelet Volume 7.4 fL (7.4-10.4); Nucleated Red Blood Cells % 0.1; Platelet Count 426 10^3/uL (150-450); Red Blood Count 2.25 10^6 /uL (3.70-4.87); Red Cell Distribution Width 14 % (10-15); White Blood Count 9.8 10^3/uL (3.5-10.8)
[2019-06-09 06:59] LABS: Calcium 7.7 mg/dL (8.6-10.3); Potassium 3.5 mmol/L (3.5-5.0)
[2019-06-09 07:04] LABS: BUN/Creatinine Ratio 25.4 (8-20); EGFR African American 124.6 (>60); EGFR Non-African American 102.9 (>60)
[2019-06-09] MEDS: Docusate CAP* 100 MG PO SCH ×2 (08:08→21:23)
[2019-06-09] MEDS ORDERED: Cholecalciferol TAB* 1000 UNITS PO SCH (09:00)
--- NOTE | 2019-06-09 09:05 | PN ---
Progress Note - Progress Note Date of Service: 06/09/19 SOAP: Subjective: Yudy reports feeling better since being admitted, and receiving the blood transfusion. She denies any dizziness or lightheadedness. She does report pain at the right thigh. No pain at the hip or knee. She feels like the swelling of the thigh is stable from yesterday. Objective: She is alert and oriented x3 and has a normal affect. Examination of the right lower extremity reveals stable swelling of the entire right lower extremity. She does have tenderness to palpation about the lateral thigh. No erythema. Incision looks pristine. No drainage or erythema around the incision. She does have some ecchymoses posterior proximal thigh. No pain with passive range of motion of the hip or knee. Temp Pulse Resp BP Pulse Ox 97.2 F 110 18 98/65 100 06/09/19 04:40 06/09/19 04:40 06/09/19 04:40 06/09/19 04:40 06/09/19 04:40 WBC down to 9.8, HCT up to 19 Elevated CRP Assessment: Yudy is a 64-year-old woman who is 2 weeks status post a right hip fracture surgical fixation with cannulated screws. She was admitted to the hospital yesterday with symptomatic anemia and fever. She was transfused 2 units and started on antibiotics. She is now afebrile, and her white count has improved. Her anemia has improved as well, and she is no longer symptomatic. We did discuss the possibility of an infection of her hematoma. We discussed having interventional radiology perform an aspiration of the hematoma and sending off the blood for culture. She is interested in moving forward with this. I do still think a proper fever workup is warranted to look for potential other sources. Her has had fevers as well, which could mean there is a communal source. Plan: - IR-guided right thigh hematoma aspiration and send for cultures (I have d/w Dr Enriquez) - Hold formal anticoagulation. I recommend aspirin daily, SCD's and frequent mobilization for DVT prophylaxis - Keep NPO for now pending IR aspiration - Continue antibiotics - ID consult - WBAT RLE with a walker - Monitor labs and trend H&H Gonzalo Nichole MD
[2019-06-09 15:35] LABS: Hematocrit 19 % (35-47); Hemoglobin 6.6 g/dL (12.0-16.0)
--- NOTE | 2019-06-09 15:55 | PN ---
Subjective Date of Service: 06/09/19 Interval History: Pt reports that she is feeling well at this time. Denies any chest pain, SOB, Dizziness or discomfort. Family History: Unchanged from Admission Social History: Unchanged from Admission Past Medical History: Unchanged from Admission Objective Active Medications: Acetaminophen (Tylenol Tab*) 650 mg PO Q4H PRN PRN Reason: PAIN-MILD/TEMP >/= 100.4 Cholecalciferol (Vitamin D Tab*) 1,000 units PO DAILY [facility] Docusate Sodium (Colace Cap*) 100 mg PO BID [facility] Last Admin: 06/09/19 08:08 Dose: Not Given Sodium Chloride (Ns 0.9% 1000 Ml) 1,000 mls @ 75 mls/hr IV PER RATE [facility] Last Admin: 06/09/19 14:52 Dose: 75 mls/hr Piperacillin Sod/Tazobactam (Sod 3.375 gm/ Sodium Chloride) 100 mls @ 25 mls/ hr IVPB Q8H [facility] Last Admin: 06/09/19 14:52 Dose: 25 mls/hr Oxycodone/Acetaminophen (Percocet 5/325 Tab*) 1 tab PO Q4H PRN PRN Reason: PAIN - MODERATE Pantoprazole Sodium (Protonix Iv*) 40 mg IV Q12H [facility] Last Admin: 06/09/19 12:34 Dose: 40 mg Pharmacy Consult (Zosyn Per Pharmacy*) 1 note FOLLOW UP .ZOSYN PER PHARMACY [facility] Senna (Senokot 8.6 Mg Tab*) 1 tab PO BEDTIME PRN PRN Reason: CONSTIPATION Vital Signs - 8 hr 06/09/19 06/09/19 07:53 11:25 Temperature 98.4 F 98.2 F Pulse Rate 110 107 Respiratory 18 18 Rate Blood Pressure 109/67 102/64 (mmHg) O2 Sat by Pulse 100 99 Oximetry Oxygen Devices in Use Now: None Appearance: Very pale, middle aged woman sitting up in bed. Does not appear to be in any distress. Eyes: No Scleral Icterus, PERRLA Ears/Nose/Mouth/Throat: NL Teeth, Lips, Gums, Clear Oropharnyx, Mucous Membranes Moist Neck: NL Appearance and Movements; NL JVP, Trachea Midline, No Thyroid Enlargement, Masses Respiratory: Symmetrical Chest Expansion and Respiratory Effort, Clear to Auscultation Cardiovascular: NL Sounds; No Murmurs; No JVD, No Edema, - - Tachycardic 120. Pedal pulses +2 bilaterally Abdominal: NL Sounds; No Tenderness; No Distention, No Hepatosplenomegaly Lymphatic: No Cervical Adenopathy Extremities: No Clubbing, Cyanosis, - - RLE +2 nonpitting edema. Right thigh site of aspiration bandage CDI, pt denies any discomfort at site. Dressing on right hip CDI R/T right hip Fx repair Skin: No Rash or Ulcers, No Nodules or Sclerosis Neurological: Alert and Oriented x 3, NL Sensation, NL Muscle Strength and Tone Result Diagrams: 06/09/19 15:23 06/09/19 06:41 Additional Lab and Data: Lab Results 06/08/19 Range/Units 17:42 WBC 14.2 H (3.5-10.8) 10^3/uL RBC 1.79 L (3.70-4.87) 10^6 /uL Hgb 5.4 L* (12.0-16.0) g/dL Hct 16 L (35-47) % MCV 89 (80-97) fL MCH 30 (27-31) pg MCHC 34 (31-36) g/dL RDW 13 (10-15) % Plt Count 502 H (150-450) 10^3/uL MPV 7.5 (7.4-10.4) fL Neut % (Auto) 78.1 % Lymph % (Auto) 13.9 % [place]on % (Auto) 7.2 % Eos % (Auto) 0.2 % Baso % (Auto) 0.6 % Absolute Neuts (auto) 11.1 H (1.5-7.7) 10^3/ul Absolute Lymphs (auto) 2.0 (1.0-4.8) 10^3/ul Absolute Monos (auto) 1.0 H (0-0.8) 10^3/ul Absolute Eos (auto) 0.0 (0-0.6) 10^3/ul Absolute Basos (auto) 0.1 (0-0.2) 10^3/ul Absolute Nucleated RBC 0.0 10^3/ul Nucleated RBC % 0.0 Microbiology and Other Data: Microbiology 06/09/19 10:20 Gram Stain - Final Misc Fluid (See Comment) - Right Leg 03/18/20 18:52 Stool Occult Blood (AROLDO) - Final Stool Assess/Plan/Problems-Billing Assessment: Mrs Garcia is a 64 yo female with history significant for Right hip Fx with repair, HTN, Hemorrhoidectomy. Mrs. Garcia arrives to ER by her PCP for anemia following Right hip surgery on 05/25. While In ER patient developed fever of 101.8, concern for septic infection arising from hematoma in right thigh. Pt recieved 2 units of blood in ER - Patient Problems (1) Anemia Current Visit: Yes Comment: -06/07 pt received 2 units of blood in ER -Today 06/08 H&H remains low at 6.6 and 19. 2 more units PRBC ordered for today -Pt is tachycardic and reports that she has felt tachycardic since having the Right hip surgery. (2) Hematoma Current Visit: Yes Comment: -Developed hematoma in right thigh following straining with bowel movment. -U/S found 7.2 X 4.2 collection uncertain if blood or inflammatory collection. -Pt arrived to ER with fever, suspicion that fever may be related to hematoma. Dr. Griffin performed aspiration today, was able to draw off just 2ml dark blood which was sent for cultures. -Zosyn 3.375 started 06/07 -Pt does not currently have fever (3) HTN (hypertension), benign Current Visit: No Comment: -No hypertension presently, pt have been normotensive to hypotensive since arrival. -Will continue to monitor -Meds not indicated at this time (4) GI bleed Current Visit: Yes Comment: -Stool hemepositive in ER -Consult to GI for possible colonoscopy as cause for anemia -Pt had hemorrhoidectomy March 2019 in [place] prior to moving to [place] (5) Hip fracture, right Current Visit: Yes Comment: -Fixation of R hip with on 05/25 -WBAT per -Pt healing well has developed hematoma in right thigh R/t straining with BM (6) Full code status Current Visit: Yes (7) DVT prophylaxis Current Visit: No Status: Acute Code(s): Z29.9 - ENCOUNTER FOR PROPHYLACTIC MEASURES, UNSPECIFIED SNOMED Code(s): 573329001 Comment: -SCDs Status and Disposition: Guarded inpatient
--- NOTE | 2019-06-09 17:11 | PN ---
Progress Note - Progress Note Date of Service: 06/09/19 SOAP: Subjective: I checked on Yudy again. She reports that she is feeling a little better. Less pain in the thigh Objective: RLE remains swollen. Mildly improved TTP thigh. No erythema. Able to PROM hip and knee without pain at either. Latest HCT 19. Temp Pulse Resp BP Pulse Ox 97.7 F 113 16 105/64 98 06/09/19 14:45 06/09/19 14:45 06/09/19 14:45 06/09/19 14:45 06/09/19 14:45 Assessment: Right thigh hematoma, possibly infected. I spoke with Dr Enriquez who aspirated hematoma and only encountered clotted blood. He was able to obtain about 2cc's. Sent for Cx. No purulence or fresh blood. Plan: - Continue abx - SCD's and frequent mobilization for DVT prophylaxis. Holding formal anticoagulation for now - f/u Cx's Gonzalo Nichole MD
--- NOTE | 2019-06-09 21:01 | CONS ---
CONSULTATION REPORT: DATE OF CONSULT: 06/09/19 PRIMARY CARE PROVIDER: Dr. Ambrosio Benitez. PROVIDER REQUESTING CONSULTATION: Dr. Gonzalo Nichole. CONSULTING SERVICE: Infectious Diseases. PROVIDER: Augusta Arredondo NP. ATTENDING PROVIDER: Dr. Raj Thomas.* (DICTATED BY AUGUSTA ARREDONDO NP) REASON FOR CONSULT: Fevers. IMPRESSION: 1. Fevers. The patient states that she was noted to have fevers when she was seen in the office outpatient by Dr. Nichole yesterday. According to her chart yesterday, her temperature was 100.[address] Nichole's office to follow up a left hip fracture, status post fixation with cannulated screws. The patient was ultimately referred to the emergency room. She was noted to have leukocytosis and elevated CRP, was febrile with temperature max of 101.8. She was negative for influenza A and B. Urinalysis with 1+ leukocyte esterase, 2+ wbc's, squamous epithelial cells present, 1+ blood, bacteria absent. The patient was also noted to have what appears to be a hematoma in her right thigh. Differential diagnosis for the fever includes Clostridium difficile colitis, influenza, viral illness, COVID-19, infected hematoma versus inflammatory response to hematoma, urinary tract infection, other respiratory infection. The patient denies any urinary symptoms. Her urinalysis does not have nitrites or bacteria present, so I have low suspicion for urinary tract infection. The patient denies any respiratory symptoms such as a cough other than some shortness of breath reported over the weekend. This was in the setting of what appears to be a acute blood loss anemia. Suspect anemia is causing her shortness of breath and not an underlying illness. She denies any diarrhea, so I have low suspicion for Clostridium difficile colitis. In regards to suspicion for possible COVID-19, the patient denies cough, currently denies shortness of breath and had shortness of breath in the setting of anemia. Additionally, her fevers have resolved with the use of Zosyn. I would not test the patient for COVID-19 at this point as she is not having other symptoms and suspect this most likely represents either inflammation from a hematoma or an infected hematoma in the right thigh post right femur ORIF. 2. Right thigh hematoma. The patient with CT of the right thigh on 06/07/19 showing a fluid collection in the vastus lateralis muscle measuring approximately 7.2 x 4.7 x 2.3 cm with subcutaneous edema. The patient is currently afebrile. Her leukocytosis has resolved. CRP was elevated on admission. Interventional Radiology aspirated the collection today and sent a sample to the lab that is currently pending culture results. 3. Acute blood loss anemia. Unclear full cause at this time whether this is secondary to the hematoma in her thigh. She is noted to have 1+ blood in her UA , but no reports of gross hematuria. Additionally, the patient has noted some intermittent bleeding status post a hemorrhoidectomy, so in the differential wound include gastrointestinal bleed. Suspect this is causing the patient shortness of breath and tachycardia. 4. Status post ORIF of the right hip fracture with cannulated screws on . The patient previously with an uncomplicated postoperative course until she developed pain in the right hip likely secondary to a hematoma. RECOMMENDATIONS/PLAN: Recommend continuing Zosyn at this time. We will continue to follow along. HISTORY OF PRESENT ILLNESS: Ms. Garcia is a 64-year-old female with past medical history significant for hypertension, who recently tripped and fell resulting in a right hip fracture. She is status post a right hip ORIF with cannulated screws on 05/25/19. She was doing well and was discharged from the hospital on 05/27/19. She states that she was doing well. She says visiting nurse saw her on 06/03/19, at which time they had noted that she had had some discoloration to the back of her leg. Additionally, she was not feeling well and feeling tachycardic. After visiting nurse left, she went to the bathroom and strained to move her bowel, at which time she felt a "pop" and had noticed that her right leg was hard. She took pain medications, which did not help. She called Orthopedics on-call and reported her symptoms. They recommended that she take pain medication and call them back if it did not improve. She continued to not have improvement in her pain. She was prescribed muscle relaxers, which also did not improve her pain and they recommended that she increase her fluid intake. Over the course of the weekend, she was unable to get out of bed due to feeling unwell. She states that on Thursday she started to feel better. She presented to [facility] and saw Dr. Benitez on 06/06/19, at which point she was continuing to feel unwell. She was feeling lightheaded, and she had been off of her antihypertensives. She was noted to have significant swelling in her right thigh with intact pulses and sensation. There was concern for a possible blood clot in the leg, so it was recommended that she get an ultrasound. Additionally, it was felt she could have a bleeding into her leg and so it was recommended that she have a CT scan and have lab work and to follow up with Orthopedics on Thursday as previously planned. She underwent a venous Doppler study on 06/07/19 showing no evidence of a DVT, but did show subcutaneous edema with more focal subcentimeter fluid collection at the popliteal fossa. She then had a right lower extremity CT scan showing a fluid collection in the vastus lateralis muscle measuring approximately 7.2 x 4.2 x 2.3 cm representing a hematoma, although an inflammatory collection was not excluded, subcutaneous edema present. She saw Orthopedic Surgery for a routine followup on 06/08/19, at which time they made recommendations for the patient to get her blood count that she had not previously gotten. She was noted to be significantly anemic and was referred to the emergency room. While in the emergency room, she was noted to be significantly anemic with hemoglobin of 5.4, hematocrit of 16, leukocytosis with a white blood cell count of 14.2. She had an elevated CRP of 178.38, lactic acidosis with a lactic acid of 2.22. Influenza A and B negative. Urine: 1+ blood, nitrites negative, leukocyte esterase 1+, squamous epithelial cells present, bacteria absent. Chest x-ray showed persistent elevation of the left hemidiaphragm. She additionally had a chest CTA showing no pulmonary embolus, findings in the proper clinical setting could be seen in pulmonary hypertension. She had blood cultures drawn that are pending. She received 2 units of packed red blood cells. She was ultimately referred to the hospitalist service for admission. While in the hospital, the patient has been afebrile since midnight today. She continues to be tachycardic, although her tachycardia is improving from the 130s to the low 100s to one teens. She is not hypoxic. She does not have tachypnea. Continues to be anemic with a hemoglobin and hematocrit of 6.6 and 19. She underwent ultrasound-guided needle aspiration of the fluid collection in her hip that has been sent for culture. The patient is afebrile. Leukocytosis has resolved. PAST MEDICAL HISTORY: Hypertension. PAST SURGICAL HISTORY: 1. Status post hemorrhoidectomy in March of 2019. 2. Status post L5-S1 laminectomy. 3. Status post hysterectomy. 4. Status post right hip ORIF with cannulated screws. 5. Status post cosmetic surgeries. MEDICATIONS: Home medications: 1. Senna 8.6 mg 1 tablet by mouth at bedtime as needed for constipation. 2. Lisinopril 5 mg by mouth daily. 3. Hydrochlorothiazide 25 mg by mouth daily. 4. Colace 100 mg by mouth twice daily. 5. Vitamin D3 1000 units by mouth daily. Hospital medications: 1. Acetaminophen 650 mg by mouth every 4 hours as needed for fever or pain. 2. Vitamin D 1000 units by mouth daily. 3. Colace 100 mg by mouth twice daily. 4. Percocet 5/325 one tablet by mouth every 4 hours as needed for pain. 5. Pantoprazole 40 mg IV every 12 hours. 6. Zosyn 3.375 g IV every 8 hours. 7. Senna 8.6 mg by mouth at bedtime as needed for constipation. 8. Sodium chloride 75 mL intravenous an hour. ALLERGIES: No known drug allergies. FAMILY HISTORY: Denies family history of recurrent or resistant infection, coronary artery disease, diabetes. Mother passed at age 73 from lymphoma. Father is alive and mostly well at age 98. SOCIAL HISTORY: She denies tobacco, alcohol, or recreational drug use. REVIEW OF SYSTEMS: I performed a 10-point review of systems. All the pertinent positives and negatives are mentioned in the history of present illness. The remaining review of systems are negative. She denies any recent travel. In the past few months, she has moved from [place] to [place]. Prior to that, she had traveled to [place] in March. PHYSICAL EXAM: Vital Signs: Temperature 97.2, heart rate 110, respiratory rate 18, O2 sat 100% on room air, blood pressure 98/65. General Appearance: Alert, appears to be in no acute distress. Head: Normocephalic, atraumatic. EENT: Extraocular movements are intact. No subconjunctival hemorrhage. Moist mucous membranes. Neck: Supple. No lymphadenopathy. Neurological: Alert and oriented. Cranial nerves II through XII are grossly intact. Moves all extremities. Cardiovascular: Regular rate and rhythm. S1 and S2 present. No murmurs, rubs, or gallops heard. Respiratory: No accessory muscle use. The lungs are clear to auscultation bilaterally. Abdomen: Bowel sounds present. Abdomen is soft, nontender, nondistended. Extremities: No left lower extremity edema. 1+ edema in the right thigh. DP and PT pulses 2+ and symmetric. Musculoskeletal: No clubbing or cyanosis noted. Exhibits good strength in all extremities. She has negative log roll on the right. She is able to flex the right knee, but does have some discomfort in the thigh. She is additionally able to flex the hip, again with some discomfort in the distal thigh near the knee. There is no effusion noted in the right knee. Psychological: Calm and cooperative. Skin: No rashes. She is noted to have ecchymosis to her posterior thigh. There is no erythema. DIAGNOSTIC STUDIES/LAB DATA: Sodium 137, potassium 5.5, chloride 109, CO2 of 20 , BUN 15, creatinine 0.59, glucose 95. White blood cell count 9.8, hemoglobin 6.6, hematocrit 19, platelet count 426. CRP 178.38. Influenza A and B negative. Please see impression and recommendations outlined above, recommendations have been discussed with Dr. Gonzalo Nichole and Ishmael Guido NP. Thank you for asking us to see Ms. Garcia in consultation. The case has been discussed with my attending Dr. Raj Thomas, who agrees with the plan of care. Reviewed by VEDA FLEMING 06/[birth year]/191956 [id number]/[facility] #: [id number] YVES
[2019-06-10] MEDS: NS 0.9% 1000 ML** 1,000 ML IV SCH (04:56)
[2019-06-10] MEDS: ZOSYN 3.375 GM Q8H per EXTENDED INFUSION IVPB SCH ×6 (06:20→23:35)
[2019-06-10 08:41] LABS: ABS Basophils 0.1 10^3/ul (0-0.2); ABS Eosinophils 0.2 10^3/ul (0-0.6); ABS Lymphocytes 1.7 10^3/ul (1.0-4.8); ABS Monocytes 0.9 10^3/ul (0-0.8); ABS Neutrophils 6.6 10^3/ul (1.5-7.7); Eosinophil % 1.7 %; Hematocrit 28 % (35-47); Hemoglobin 9.3 g/dL (12.0-16.0); Lymphocyte % 18.2 %; Mean Corpuscular HGB Conc 34 g/dL (31-36); Mean Corpuscular Hemoglobin 30 pg (27-31); Mean Corpuscular Volume 88 fL (80-97); Mean Platelet Volume 7.3 fL (7.4-10.4); Nucleated Red Blood Cells % 0.1; Platelet Count 491 10^3/uL (150-450); Red Blood Count 3.14 10^6 /uL (3.70-4.87); Red Cell Distribution Width 15 % (10-15); White Blood Count 9.5 10^3/uL (3.5-10.8)
[2019-06-10 09:00] LABS: Calcium 8.4 mg/dL (8.6-10.3); EGFR African American 119.9 (>60); EGFR Non-African American 99.1 (>60); Potassium 3.4 mmol/L (3.5-5.0)
[2019-06-10] MEDS: Docusate CAP* 100 MG PO SCH ×2 (09:13→21:22)
[2019-06-10] MEDS: Cholecalciferol TAB* 1000 UNITS PO SCH (09:13)
[2019-06-10] MEDS ORDERED: Potassium Chlor TAB* 20 MEQ TAB.ER PO ONE (09:17)
[2019-06-10] MEDS: Pantoprazole IV* 40 MG IV SCH ×2 (10:41→23:30)
--- NOTE | 2019-06-10 11:50 | PN ---
Progress Note - Progress Note Date of Service: 06/10/19 SOAP: Subjective: Pt seen at bedside today, feeling better. Dizziness and lightheadedness improved. Mildly SOB but only with exertion today. Still concerned about swelling to lower leg. Denies CP, no recent f/c. Objective: Vital Signs: Temp Pulse Resp BP Pulse Ox 98.6 F 98 19 117/72 96 06/10/19 07:15 06/10/19 07:15 06/10/19 08:00 06/10/19 07:15 06/10/19 07:15 Gen: A&Ox3, NAD at rest sitting in chair RLE: Significant swelling throughout lower leg and thigh. Calf is NT. +TTP to lateral right thigh at area of hematoma. +f/e at knee and MTPs. N/V intact Labs: Laboratory Results - last 24 hr 06/08/19 06/09/19 06/10/19 17:42 15:23 08:32 WBC 9.5 RBC 3.14 L Hgb 6.6 L 9.3 L Hct 19 L 28 L MCV 88 MCH 30 MCHC 34 RDW 15 Plt Count 491 H D MPV 7.3 L Neut % (Auto) 69.8 Lymph % (Auto) 18.2 Bates % (Auto) 9.2 Eos % (Auto) 1.7 Baso % (Auto) 1.1 Absolute Neuts (auto) 6.6 Absolute Lymphs (auto) 1.7 Absolute Monos (auto) 0.9 H Absolute Eos (auto) 0.2 Absolute Basos (auto) 0.1 Absolute Nucleated RBC 0.0 Nucleated RBC % 0.1 Sodium Potassium Chloride Carbon Dioxide Anion Gap BUN Creatinine Est GFR ( Amer) Est GFR (Non-Af Amer) BUN/Creatinine Ratio Glucose Calcium Blood Type B Negative Antibody Screen Negative Crossmatch See Detail 06/10/19 08:32 WBC RBC Hgb Hct MCV MCH MCHC RDW Plt Count MPV Neut % (Auto) Lymph % (Auto) Bates % (Auto) Eos % (Auto) Baso % (Auto) Absolute Neuts (auto) Absolute Lymphs (auto) Absolute Monos (auto) Absolute Eos (auto) Absolute Basos (auto) Absolute Nucleated RBC Nucleated RBC % Sodium 138 Potassium 3.4 L Chloride 108 Carbon Dioxide 22 Anion Gap 8 BUN 11 Creatinine 0.61 Est GFR ( Amer) 119.9 Est GFR (Non-Af Amer) 99.1 BUN/Creatinine Ratio 18.0 Glucose 94 Calcium 8.4 L Blood Type Antibody Screen Crossmatch Microbiology 06/09/19 10:20 Misc Fluid (See Comment) - Right Leg Gram Stain - Final 06/09/19 10:20 Misc Fluid (See Comment) - Right Leg Body Fluid Culture - Preliminary No Growth Day 1 06/08/19 20:40 Urine Urine Culture - Final 06/08/19 22:47 Blood Venous Aerobic Blood Culture - Preliminary No Growth Day 1 06/08/19 22:47 Blood Venous Anaerobic Blood Culture - Preliminary No Growth Day 1 06/08/19 22:47 Blood Venous Aerobic Blood Culture - Preliminary No Growth Day 1 06/08/19 22:47 Blood Venous Anaerobic Blood Culture - Preliminary No Growth Day 1 06/08/19 18:52 Stool Stool Occult Blood (AROLDO) - Final Assessment: S/P right hip fracture fixation with cannulated screws, complicated by thigh hematoma and fever Plan: Pain improving H/H improving after transfusions Pt encouraged to continue with mobilization and elevation of RLE to improve swelling Consider thigh high JAZMIN stockings once hematoma pain decreases Will continue abx per ID Probable d/c tomorrow if continuing to improve and no growth on thigh aspiration
--- NOTE | 2019-06-10 15:50 | PN ---
Subjective Date of Service: 06/10/19 Interval History: Pt states that she is feeling much better than yesterday. Sitting up in chair. Denies fatigue, lightheadedness, dizziness, headache, CP, palpitations, SOB, N/V /D, unusual numbness/tingling. States that she had a tiny smear of light pink drainage with BM this morning, states that the BM was normal in color and consistency. Denies any darkening or blood in urine. Family History: Unchanged from Admission Social History: Unchanged from Admission Past Medical History: Unchanged from Admission Objective Active Medications: Acetaminophen (Tylenol Tab*) 650 mg PO Q4H PRN PRN Reason: PAIN-MILD/TEMP >/= 100.4 Cholecalciferol (Vitamin D Tab*) 1,000 units PO DAILY [facility] Last Admin: 06/10/19 09:13 Dose: 1,000 units Docusate Sodium (Colace Cap*) 100 mg PO BID [facility] Last Admin: 06/10/19 09:13 Dose: 100 mg Sodium Chloride (Ns 0.9% 1000 Ml) 1,000 mls @ 75 mls/hr IV PER RATE [facility] Last Admin: 06/10/19 04:56 Dose: 75 mls/hr Piperacillin Sod/Tazobactam (Sod 3.375 gm/ Sodium Chloride) 100 mls @ 25 mls/ hr IVPB Q8H [facility] Last Admin: 06/10/19 06:20 Dose: 25 mls/hr Oxycodone/Acetaminophen (Percocet 5/325 Tab*) 1 tab PO Q4H PRN PRN Reason: PAIN - MODERATE Pantoprazole Sodium (Protonix Iv*) 40 mg IV Q12H [facility] Last Admin: 06/10/19 10:41 Dose: 40 mg Pharmacy Consult (Zosyn Per Pharmacy*) 1 note FOLLOW UP .ZOSYN PER PHARMACY [facility] Senna (Senokot 8.6 Mg Tab*) 1 tab PO BEDTIME PRN PRN Reason: CONSTIPATION Vital Signs - 8 hr 06/10/19 08:00 Respiratory 18 Rate Oxygen Devices in Use Now: None Appearance: Sitting up in chair, NAD Eyes: No Scleral Icterus, PERRLA, - - EOMI Ears/Nose/Mouth/Throat: Clear Oropharnyx Respiratory: Symmetrical Chest Expansion and Respiratory Effort, Clear to Auscultation Cardiovascular: RRR Abdominal: NL Sounds; No Tenderness; No Distention Extremities: - - 2+ non-pitting edema RLE, no edema LLE Skin: - - area to R thigh covered with dressing, CDI Neurological: Alert and Oriented x 3 Nutrition: Taking PO's Result Diagrams: 06/10/19 08:32 06/10/19 08:32 Additional Lab and Data: Lab Results 06/08/19 Range/Units 17:42 WBC 14.2 H (3.5-10.8) 10^3/uL RBC 1.79 L (3.70-4.87) 10^6 /uL Hgb 5.4 L* (12.0-16.0) g/dL Hct 16 L (35-47) % MCV 89 (80-97) fL MCH 30 (27-31) pg MCHC 34 (31-36) g/dL RDW 13 (10-15) % Plt Count 502 H (150-450) 10^3/uL MPV 7.5 (7.4-10.4) fL Neut % (Auto) 78.1 % Lymph % (Auto) 13.9 % Maries % (Auto) 7.2 % Eos % (Auto) 0.2 % Baso % (Auto) 0.6 % Absolute Neuts (auto) 11.1 H (1.5-7.7) 10^3/ul Absolute Lymphs (auto) 2.0 (1.0-4.8) 10^3/ul Absolute Monos (auto) 1.0 H (0-0.8) 10^3/ul Absolute Eos (auto) 0.0 (0-0.6) 10^3/ul Absolute Basos (auto) 0.1 (0-0.2) 10^3/ul Absolute Nucleated RBC 0.0 10^3/ul Nucleated RBC % 0.0 Microbiology and Other Data: Microbiology 06/09/19 10:20 Gram Stain - Final Misc Fluid (See Comment) - Right Leg 06/08/19 18:52 Stool Occult Blood (AROLDO) - Final Stool Assess/Plan/Problems-Billing Assessment: Mrs Garcia is a 64 yo female with history significant for Right hip Fx with repair, HTN, Hemorrhoidectomy. Mrs. Garcia arrives to ER by her PCP for anemia following Right hip surgery on 05/25. While In ER patient developed fever of 101.8, concern for septic infection arising from hematoma in right thigh. - Patient Problems (1) Anemia Current Visit: Yes Status: Acute Code(s): D64.9 - ANEMIA, UNSPECIFIED SNOMED Code(s): 333860443 Comment: received 2 units PRBC on 06/07 and again on 06/08. HH now 9.3/28. Feeling much better per her report, now asymptomatic. However other than the hematoma she may have another source of bleeding, did have positive stool occult blood, may be in relation to her prior hemorrhoidectomy but active bleed could explain such intense drop in HH. Tachycardia present but rate slowly decreasing. -Awaiting GI consult, has been ordered and department contacted (2) Hematoma Current Visit: Yes Status: Acute Code(s): T14.8XXA - OTHER INJURY OF UNSPECIFIED BODY REGION, INITIAL ENCOUNTER SNOMED Code(s): 972083112 Comment: Hx R hip ORIF on 05/24. Developed hematoma in right thigh following straining with bowel movment. U/S found 7.2 X 4.2cm collection uncertain if blood or inflammatory collection. Aspiration obtained only 2ml bloody fluid. Cultures sent. ID consult obtained. Has been afebrile since early 06/08. -Zosyn 3.375 started 06/07 -Awaiting results of culture from hematoma (3) HTN (hypertension), benign Current Visit: No Status: Acute Code(s): I10 - ESSENTIAL (PRIMARY) HYPERTENSION SNOMED Code(s): 02899657 Comment: Has not been hypertensive, per her report usual BP meds held per her PCP recently. Lower BPs likely in relation to drop in HH. -continue to hold home meds -continue to monitor (4) Full code status Current Visit: Yes Status: Acute Code(s): Z78.9 - OTHER SPECIFIED HEALTH STATUS SNOMED Code(s): 147493392 (5) DVT prophylaxis Current Visit: No Status: Acute Code(s): Z29.9 - ENCOUNTER FOR PROPHYLACTIC MEASURES, UNSPECIFIED SNOMED Code(s): 289682590 Comment: No anticoags in relation to bleeding -SCDs Status and Disposition: status: improving disposition: 4N Attending: Domi Leigh
--- NOTE | 2019-06-10 22:04 | CONS ---
CONSULTATION REPORT: DATE OF CONSULT: 06/08/19 REQUESTING PHYSICIAN: Dr. Elizabeth. REASON FOR CONSULT: Anemia, occult positivity. HISTORY OF PRESENT ILLNESS: This is a 64-year-old female... DICTATION ENDS HERE [id number]/[facility] #: [id number] MTDD
--- NOTE | 2019-06-10 23:10 | CONS ---
CONSULTATION REPORT: DATE OF CONSULT: 06/10/19 REQUESTING PHYSICIAN: Dr. Terri Elizabeth. REASON FOR CONSULTATION: Anemia, occult positivity. HISTORY OF PRESENT ILLNESS: This is a pleasant 64-year-old female with history of hypertension, who had a recent ORIF on 05/25/19. She had a normal hemoglobin prior to the surgery. Over the past few weeks, her hemoglobin has drifted down continuously. She was found to have a hematoma, but also was found to have occult positivity. She denies any black or blood in the stool. She denies any diarrhea or constipation. She states that occasionally she does strain and had a good bowel movement on 06/06/19. She had a hemorrhoidectomy in March of 2019 and she stated that she could expect some postop bleeding ___ ___ months. She states she had a full colonoscopy 2 years ago and is due in 3 years' time due to her family history and prior polyps. She states she also had an upper endoscopy about 5 years ago. She denies any weight loss or weight gain. Denies any fever, chills, or nausea. She denies any skin rash or lesions , and denies any dysphagia or odynophagia. PAST MEDICAL HISTORY: 1. Hemorrhoidectomy in March of 2019. 2. Colonoscopy about 2 years ago. 3. Hypertension. 4. Back surgery. 5. Hysterectomy. 6. ORIF on 05/25/19. MEDICATIONS: Home medications include: 1. Senna. 2. Vitamin D3. 3. Colace. ALLERGIES: No known drug allergies. FAMILY HISTORY: No family history of GI cancer or inflammatory bowel disease. SOCIAL HISTORY: Denies any tobacco, alcohol, or drug use. REVIEW OF SYSTEMS: The remainder of the 14-point review of systems is grossly negative except for as described in the HPI. PHYSICAL EXAM: Vital Signs: Blood pressure is 124/76, pulse is 99, respiratory rate is 19, she is 98.7 degrees. She is 99% on room air. In general, alert and oriented, in no acute distress. HEENT: Atraumatic, normocephalic. Pupils equal, round, reactive to light. Extraocular movements are intact. Conjunctivae are pink. Sclerae anicteric. Cardiovascular: Regular rate and rhythm, S1, S2. Respiratory: Clear to auscultation bilaterally. Abdomen: Soft, nontender, nondistended. Bowel sounds positive. Extremities: No clubbing or cyanosis. Right extremity edema 2+. The right thigh is covered with a dressing. Psych: Appropriate mood and affect. DIAGNOSTIC STUDIES/LAB DATA: Hemoglobin on admission is 5.4, currently 9.3. Lactic acid on admission is 2.2, resolved to 1.3. Occult blood testing was positive in the emergency room. IMPRESSION AND PLAN: This is a 64-year-old female with postoperative anemia and occult positivity. 1. Occult positivity. The patient does have scant bleeding when wiping. She denies any gross hematochezia. She had recent hemorrhoid intervention in March of 2019. She had a recent colonoscopy 2 years ago and has been on a regular screening interval. She states she had an upper endoscopy about 5 years ago . She is due for both in July of 2019 per the patient. Her hemoglobin has improved, I suspect the majority of the loss is related to the hematoma. In terms of the scant bleeding, would recommend fiber and perhaps MiraLAX if needed. If she has ongoing blood loss, she will contact my office, and we will plan tentatively an upper and lower endoscopy after consultation in the office. She will contact me sooner if any ongoing issues. 2. History of colon polyps. Recommend colonoscopy in July as was outlined by prior physician. 3. Mild constipation. Recommend fiber and MiraLAX as above. 4. Anemia, appears to be postop related, improving after hematoma identified. [id number]/[facility] #: [id number] MTDD
[2019-06-11 05:12] LABS: Hematocrit 29 % (35-47); Hemoglobin 9.8 g/dL (12.0-16.0)
[2019-06-11 05:21] LABS: Potassium 3.9 mmol/L (3.5-5.0)
[2019-06-11] MEDS: ZOSYN 3.375 GM Q8H per EXTENDED INFUSION IVPB SCH ×2 (07:51)
[2019-06-11] MEDS: Cholecalciferol TAB* 1000 UNITS PO SCH (07:51)
[2019-06-11] MEDS: Docusate CAP* 100 MG PO SCH (07:51)
--- NOTE | 2019-06-11 09:55 | PN ---
Progress Note - Progress Note Date of Service: 06/11/19 SOAP: Subjective: Patient seen OOB in chair. She states her pain has improved since yesterday. She states she still has swelling but she believes it is slowly improving. She has done PT yesterday and did well. She denies CP, SOB, f/c. Objective: Vitals: Vital Signs Temp Pulse Resp BP Pulse Ox 98.1 F 91 16 125/82 97 06/11/19 07:15 06/11/19 07:15 06/11/19 07:15 06/11/19 07:15 06/11/19 07:15 Gen: A&Ox3, NAD at rest sitting in chair RLE: Significant swelling throughout lower leg and thigh. Calf is NT. +TTP to lateral right thigh at area of hematoma. Incision C/D/I with no signs of infection. +f/e at knee and MTPs. N/V intact Labs: Laboratory Last Values WBC 9.5 10^3/uL (3.5-10.8) 06/10/19 08:32 RBC 3.14 10^6 /uL (3.70-4.87) L 06/10/19 08:32 Hgb 9.8 g/dL (12.0-16.0) L 06/11/19 04:37 Hct 29 % (35-47) L 06/11/19 04:37 MCV 88 fL (80-97) 06/10/19 08:32 MCH 30 pg (27-31) 06/10/19 08:32 MCHC 34 g/dL (31-36) 06/10/19 08:32 RDW 15 % (10-15) 06/10/19 08:32 Plt Count 491 10^3/uL (150-450) H D 06/10/19 08:32 MPV 7.3 fL (7.4-10.4) L 06/10/19 08:32 Neut % (Auto) 69.8 % 06/10/19 08:32 Lymph % (Auto) 18.2 % 06/10/19 08:32 Reeves % (Auto) 9.2 % 06/10/19 08:32 Eos % (Auto) 1.7 % 06/10/19 08:32 Baso % (Auto) 1.1 % 06/10/19 08:32 Absolute Neuts (auto) 6.6 10^3/ul (1.5-7.7) 06/10/19 08:32 Absolute Lymphs (auto) 1.7 10^3/ul (1.0-4.8) 06/10/19 08:32 Absolute Monos (auto) 0.9 10^3/ul (0-0.8) H 06/10/19 08:32 Absolute Eos (auto) 0.2 10^3/ul (0-0.6) 06/10/19 08:32 Absolute Basos (auto) 0.1 10^3/ul (0-0.2) 06/10/19 08:32 Absolute Nucleated RBC 0.0 10^3/ul 06/10/19 08:32 Nucleated RBC % 0.1 06/10/19 08:32 Sodium 138 mmol/L (135-145) 06/10/19 08:32 Potassium 3.9 mmol/L (3.5-5.0) 06/11/19 04:37 Chloride 108 mmol/L (101-111) 06/10/19 08:32 Carbon Dioxide 22 mmol/L (22-32) 06/10/19 08:32 Anion Gap 8 mmol/L (2-11) 06/10/19 08:32 BUN 11 mg/dL (6-24) 06/10/19 08:32 Creatinine 0.61 mg/dL (0.51-0.95) 06/10/19 08:32 Est GFR ( Amer) 119.9 (>60) 06/10/19 08:32 Est GFR (Non-Af Amer) 99.1 (>60) 06/10/19 08:32 BUN/Creatinine Ratio 18.0 (8-20) 06/10/19 08:32 Glucose 94 mg/dL (70-100) 06/10/19 08:32 Lactic Acid 1.3 mmol/L (0.5-2.0) 06/08/19 22:47 Calcium 8.4 mg/dL (8.6-10.3) L 06/10/19 08:32 Total Bilirubin 0.90 mg/dL (0.2-1.0) 06/08/19 17:42 AST 12 U/L (13-39) L 06/08/19 17:42 ALT 10 U/L (7-52) 06/08/19 17:42 Alkaline Phosphatase 59 U/L (34-104) 06/08/19 17:42 Troponin I 0.01 ng/mL (<0.03) 06/08/19 17:42 C-Reactive Protein 178.38 mg/L (<8.01) H 06/08/19 17:42 Total Protein 6.0 g/dL (6.4-8.9) L 06/08/19 17:42 Albumin 3.1 g/dL (3.2-5.2) L 06/08/19 17:42 Globulin 2.9 g/dL (2-4) 06/08/19 17:42 Albumin/Globulin Ratio 1.1 (1-3) 06/08/19 17:42 Urine Color Yellow 06/08/19 20:40 Urine Appearance Clear 06/08/19 20:40 Urine pH 6.0 (5-9) 06/08/19 20:40 Ur Specific [place] 1.012 (1.010-1.030) 06/08/19 20:40 Urine Protein Negative (Negative) 06/08/19 20:40 Urine Ketones Negative (Negative) 06/08/19 20:40 Urine Blood 1+ (Negative) A 06/08/19 20:40 Urine Nitrate Negative (Negative) 06/08/19 20:40 Urine Bilirubin Negative (Negative) 06/08/19 20:40 Urine Urobilinogen Negative (Negative) 06/08/19 20:40 Ur Leukocyte Esterase 1+ (Negative) A 06/08/19 20:40 Urine WBC (Auto) 2+(11-20/hpf) (Absent) A 06/08/19 20:40 Urine RBC (Auto) Trace(0-2/hpf) (Absent) 06/08/19 20:40 Ur Squamous Epith Cells Present (Absent) A 06/08/19 20:40 Urine Bacteria Absent (Absent) 06/08/19 20:40 Urine Glucose Negative (Negative) 06/08/19 20:40 Influenza A (Rapid) Negative (Negative) 06/08/19 18:36 Influenza B (Rapid) Negative (Negative) 06/08/19 18:36 Blood Type B Negative 06/08/19 17:42 Antibody Screen Negative 06/08/19 17:42 Crossmatch See Detail 06/08/19 17:42 Microbiology 06/09/19 10:20 Gram Stain - Final Misc Fluid (See Comment) - Right Leg Body Fluid Culture - Preliminary No Growth Day 2 06/08/19 22:47 Aerobic Blood Culture - Preliminary Blood Venous No Growth Day 2 Anaerobic Blood Culture - Preliminary No Growth Day 2 06/08/19 22:47 Aerobic Blood Culture - Preliminary Blood Venous No Growth Day 2 Anaerobic Blood Culture - Preliminary No Growth Day 2 06/08/19 20:40 Urine Culture - Final Urine Assessment: S/P right hip fracture fixation with cannulated screws, complicated by thigh hematoma and fever Plan: Pain improving H/H improving after transfusions Pt encouraged to continue with mobilization and elevation of RLE to improve swelling Consider thigh high JAZMIN stockings once hematoma pain decreases Will continue abx per ID Continue PT Probable d/c today if continuing to improve and no growth on thigh aspiration
[2019-06-11 10:00] LABS: C Reactive Protein 77.82 mg/L (<8.01)
[2019-06-11] MEDS: Pantoprazole IV* 40 MG IV SCH (11:33)
[2019-06-11 12:01] VITALS: BP 140/75
--- NOTE | 2019-06-11 23:53 | DS ---
CC: Dr. Benitez * DISCHARGE SUMMARY: DATE OF ADMISSION: 06/08/19 DATE OF DISCHARGE: 06/11/19 ATTENDING PHYSICIAN: Dr. Leigh * (dictated by Yared Ocampo NP). PRIMARY CARE PHYSICIAN: Dr. Benitez. CONSULTING PROVIDERS: 1. Dr. Nichole, Orthopedics. 2. Jacqui Humphrey NP, Infectious Disease. PRIMARY DIAGNOSES: 1. Hematoma. 2. Anemia. SECONDARY DIAGNOSES: 1. Systemic inflammatory response syndrome. 2. Status post right hip open reduction and internal fixation. 3. History of hypertension. PROCEDURES: Ultrasound fine-needle aspiration of right thigh hematoma. Impression states an uncomplicated ultrasound-guided aspiration of a right thigh hematoma. The echogenicity of the collection is consistent with an evolving hematoma. Despite two advancements of large bore needles, less than 2 mL of dark red blood was aspirated and sent to laboratory. HISTORY OF PRESENT ILLNESS AND HOSPITAL COURSE: Ms. Garcia is a 64-year-old female with past medical history significant for hypertension, recent right hip ORIF on 05/25/19, and somewhat last recent hemorrhoidectomy in March of 2019. Per her admission report, she developed significant constipation on 06/03/19 and stated that she was having significant straining to have a bowel movement and suddenly experienced severe pain to her right postoperative hip. Her thigh at that point became very swollen and painful. She had since been experiencing lightheadedness when trying to stand up and move. She stated that she was essentially bedridden in relation to pain, weakness, and lightheadedness. She did see her PCP for followup on 06/07/19, which at that time, there was concern about swelling of the right thigh. A venous Doppler study was performed on , which showed no evidence of a DVT, but did show subcutaneous edema with small focal subcentimeter fluid collection in the popliteal fossa. Additionally , a CT of the lower extremity was obtained that day, which showed a fluid collection in the vastus lateralis muscle measuring approximately 7.2 x 4.2 cm, which may represent a hematoma, although an inflammatory collection is not excluded, subcutaneous edema is present. The next day on 06/08/19, she had a regular followup with Dr. Nichole, who did note the hematoma, her sutures were removed. Lab work was ordered and her hemoglobin was noted per report at 5.6 and she was sent to the emergency department for further evaluation. While in the emergency department, she began developing fever of 101.8. She was not complaining of any shortness of breath or chest pain. She was not showing any other signs of infectious process. She was also noted to have a positive blood occult stool while in the emergency department., thinking that this was likely in relation to her previous hemorrhoidectomy and significant straining. Her initial H and H was 5.4 and 16. She did have a white count of 14.2. Also, with significant tachycardia in 130s. While in the emergency department, she was given 2 units of blood as well as fluids and IV Zosyn. The next day, she had an H and H at 6.6 and 19, continued to be symptomatic and she was given another 2 units of packed red blood cells. Since she has shown continued improvement, last H and H noted at 9.8 and 29. Tachycardia still present, but improved now in the 90s to low 100s. She stated that she was taken off of her usual blood pressure medications by her PCP recently in relation to low BPs after her surgery. Her BPs have been soft at times here, but over the last couple of days have remained stable. She did have a GI consult and per consult report, plans are to follow up with GI. She will have upper and lower endoscopies in July. There was no concern for acute GI bleeding at this time. She will be started on aspirin daily per Orthopedics. The aspirate from the hematoma had no growth on day 2, however, considering response and presentation in the emergency department, it is reasonable to assume that there still may have been some sort of infection of the hematoma and should continue to treat appropriately. Today, she denies any headache, lightheadedness, chest pain, palpitations, shortness of breath, nausea, vomiting , diarrhea, difficulty with urination or unusual numbness or tingling. She is concerned about the swelling to her right lower extremity. She states that she still has aspirin 325 at home as well as postoperative pain medications. The patient is acceptable for discharge this afternoon. DIAGNOSTIC STUDIES/LAB DATA: Studies: EKG showed sinus tachycardia with heart rate at 126 with flattening of T-waves in V4 and V6. Chest x-ray, impression states persistent elevation of left hemidiaphragm with no other acute findings. CTA chest and thorax, impression states no pulmonary emboli. Findings, which in the proper clinical setting can be seen in pulmonary hypertension. Pertinent lab data: Original CBC from 06/08/19: WBC 14.2, RBC 1.79, hemoglobin 5.4, hematocrit 16, MCV 89, MCH 30, MCHC 34, RDW 13, platelet count 502. Absolute neutrophils 11.1, absolute monocytes 1.0. Chemistry from : Sodium 133, potassium 3.4, chloride 101, carbon dioxide 24, anion gap 8, BUN 24, creatinine 0.58, estimated GFR 105.0, BUN-creatinine ratio 41.4, glucose 112, lactic acid 2.2, calcium 8.5. CRP 178.38. Most recent H and H from 06/11/19 is 9.8 and 29. WBC from 06/10/19 is 9.5. Potassium from is 3.9. CRP 77.82. UA positive for blood, leukocyte esterase, wbc's, and squamous epithelial cells. No bacteria or nitrites. She was screened for flu, swabs negative. Blood cultures showed no growth. Urine culture showed few Enterobacteriaceae, possible contamination. Stool occult blood positive. Body fluid culture of hematoma aspirate, no growth day 2. REVIEW OF SYSTEMS: A 12-point review of systems was completed with this patient. Please see HPI for all pertinent positives and negatives. PHYSICAL EXAMINATION: Constitutional: Sitting up in chair, great spirits, in no acute distress. Last Vital Signs: Temp 98.4, pulse 99, respiratory rate 18 , O2 sat 97% on room air, BP 140/75. HEENT: PERRL. No scleral icterus. Cardiovascular: Heart rate regular. S1, S2 present. No murmurs, rubs or gallops noted. Extremities: 3+ edema throughout right lower extremity with mild pitting. No edema in left lower extremity. Respiratory: Lung sounds clear throughout bilaterally. Normal respiratory effort. GI: Normoactive bowel sounds throughout. Musculoskeletal: Limited strength and range of motion to right lower extremity. All other extremities within normal limits. Neuro: Alert and oriented x3. Normal sensation to right lower extremity. DISCHARGE PLAN: 1. Continue with heart healthy diet and high fiber. 2. No equipment necessary for discharge. 3. [facility] has been contacted by the case management about the patient's discharge. 4. Continue to increase activity level as tolerated. 5. Continue regular physical therapy. DIAGNOSES: 1. Hematoma. It is unclear whether there was infection to hematoma or not. Although, the culture results did not display infection, it is not unreasonable to treat her properly considering her significant response and condition on arrival to the emergency department. Continue Augmentin 500 mg p.o. b.i.d. x10 days. 2. Anemia. Ordered CBC to be drawn on 06/14/19. We will be following up with primary care provider in the next 1 to 2 weeks. She is aware of signs and symptoms for which she should call her doctor or return to the emergency department for. No concern for active bleeding at this time. Plan to follow up with GI at some point and have upper and lower endoscopies in July of this year. 3. Systemic inflammatory response syndrome. Again, it is unclear whether there was an infectious process going on within the hematoma or whether she was exhibiting a general inflammatory response syndrome. Again, it is reasonable to treat her for potential infection of hematoma. She has remained afebrile since early 06/09/19 and heart rate has continued to decrease to a somewhat normal level. Blood pressures have been soft at times, but otherwise stable. Again, she will be following up with PCP. 4. Status post right hip open reduction and internal fixation. The patient is okay for discharge per Orthopedics as well. Plan is to follow up next Thursday or Thursday. She will call the office for an appointment. Per Orthopedic PA, the patient will start aspirin 325 mg once daily. Again, will be following up with them next week. 5. History of hypertension. Per the patient's report, she was taken off her antihypertensive medications recently. She has had soft blood pressures during this admission, which seemed to have stabilized more after receiving multiple units of blood. It is reasonable to keep her off of these medications at this time and she can be reassessed with her primary care provider. RETURN PRECAUTIONS: The patient should return to the emergency department or call 911 if she experiences significant lightheadedness, dizziness, chest pain, palpitations or unusual shortness of breath. All other nonemergent concerns can be deferred to her PCP. MEDICATIONS AT DISCHARGE: 1. Cholecalciferol 1000 units p.o. daily. 2. Docusate 100 mg p.o. b.i.d. 3. Senna 8.6 mg tab one tab p.o. at bedtime as needed for constipation. 4. Augmentin 500 mg p.o. b.i.d. x10 days. 5. Aspirin 325 mg p.o. daily. 6. May continue with postoperative pain medication as prescribed which she states she has at home. 7. MiraLax, the patient declined. CONDITION AT DISCHARGE: Stable. DISPOSITION: Home. TIME SPENT: Approximately 60 minutes was spent on this discharge, with about half of that being [id number] with the patient for interview, exam, and reviewing plan of care and discharge plan. This plan has been discussed with my attending provider, Dr. Leigh, and she agrees with this plan. YARED OCAMPO NP [id number]/[facility] #: [id number] MTDD
== END 2019-06-11 12:35 | disposition home health service (06) | DRG 663 ==
LOC: ED 17:15 → MED 22:04
PROVIDERS: ADMIT Internal Medicine; ATTEND Hospitalist
PROC: 0J9L3ZX Drainage of Right Upper Leg Subcutaneous Tissue and Fascia, Percutaneous Approach, Diagnostic (ICD-10-PCS; principal; 2019-06-08)
PROC: 30233N1 Transfusion of Nonautologous Red Blood Cells into Peripheral Vein, Percutaneous Approach (ICD-10-PCS; 2019-06-09)
DX: D62 Acute posthemorrhagic anemia (principal); M96.840 Postprocedural hematoma of a musculoskeletal structure following a musculoskeletal system procedure; R65.10 Systemic inflammatory response syndrome (SIRS) of non-infectious origin without acute organ dysfunction; K92.1 Melena; I95.9 Hypotension, unspecified; K59.00 Constipation, unspecified; I10 Essential (primary) hypertension; R00.0 Tachycardia, unspecified; R50.9 Fever, unspecified; D72.829 Elevated white blood cell count, unspecified; Z87.81 Personal history of (healed) traumatic fracture; Z86.010 Personal history of colon polyps; Z79.899 Other long term (current) drug therapy; Z80.7 Family history of other malignant neoplasms of lymphoid, hematopoietic and related tissues
CPT/HCPCS: 10005; 36415; 71046; 71275; 76942; 80048; 80053; 81003; 81015; 82270; 83605; 84132; 84484; 85014; 85018; 85025; 86140; 86850; 86900; 86901; 86922; 87040; 87070; 87086; 87205; 93005; 96365; 99284; A9270-GY; J2543; P9040; Q9967